=== PATIENT | female | born 1955 | race Caucasian/White ===

== ENCOUNTER 2023-09-17 11:12 | Outpatient (AMB) | payer OTHER, SELFPAY ==
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
== END 2023-09-17 11:57 | disposition home or self-care (01) ==
LOC: HO.HNS 11:13
PROVIDERS: PCP Internal Medicine Geriatric Medicine; Visit Provider Neurological Surgery
DX: M48.061 Spinal stenosis, lumbar region without neurogenic claudication (principal); M51.36 Other intervertebral disc degeneration, lumbar region
CPT/HCPCS: 99204

== ENCOUNTER 2023-09-17 11:12 | Outpatient (REF) | payer OTHER, SELFPAY ==
--- NOTE | ~2023-09-17 | XR_ITS ---
EXAMINATION: XR LUMBOSACRAL SPINE WITH OBLIQUES CLINICAL INFORMATION: Spinal stenosis lumbar region without neurogenic claudication. COMPARISON: None available. TECHNIQUE: AP lateral, flexion and extension views of the lumbar spine. FINDINGS: Levoscoliosis of the lumbar spine. Advanced multilevel degenerative changes in the lumbar spine with multilevel loss of disc space height and hypertrophic change most notable at L1-L2, L2-L3, L4-L5 and L5-S1. Posterior fixation hardware and interdisc spacer at L3-L4. Hardware appears intact. XR/XR lumbar spine 4V min IMPRESSION: Status post posterior fixation at L3-L4. Advanced multilevel degenerative changes in the lumbar spine. MRI could be considered for further evaluation if there is clinical concern for fracture or other pathology.
== END 2023-09-17 11:13 | disposition home or self-care (01) ==
LOC: HO.HOSX 11:12
PROVIDERS: PCP Internal Medicine Geriatric Medicine; Visit Provider Neurological Surgery
DX: M48.061 Spinal stenosis, lumbar region without neurogenic claudication (principal); M51.36 Other intervertebral disc degeneration, lumbar region
CPT/HCPCS: 72110; 99202

== ENCOUNTER 2023-09-29 13:32 | Outpatient (AMB) | payer OTHER, SELFPAY ==
[2023-09-29 13:50] VITALS: BP 149/79; PULSE 98; RESP 12; O2SAT 96; BMI 29.9
--- NOTE | 2023-09-29 13:50 | A.OFFVIS_ITS ---
Intake Vital Signs 3 09/29/23 13:50 Height 5 ft 7 in Weight 191 lb BMI 29.9 BP 149/79 H Blood Pressure Location Lt brachial Position Sitting Respiration 12 Pulse 98 Pulse Source Pulse Oximeter Pulse Oximetry (%) 96 Oxygen Delivery Method Room Air Intake Visit Reasons: SPINAL STENOSIS/LVM Allergies No Known Allergies Allergy (Verified 09/29/23 13:53) Medication List - Last Reconciled 09/29/23 by Isabel Andres LPN allopurinol 300 mg PO DAILY aspirin 81 mg PO DAILY atorvastatin 80 mg PO DAILY duloxetine 40 mg PO DAILY empagliflozin (Jardiance) 25 mg PO DAILY ezetimibe 10 mg PO DAILY furosemide 40 mg PO BID insulin lispro (Humalog KwikPen U-200 Insulin) subcut insulin pump cart,cont inf,BT (Omnipod Dash Pods (Gen 4) subcutaneous cartridge) As directed lisinopril 20 mg PO DAILY oxybutynin chloride ER 10 mg PO DAILY potassium chloride ER 20 mEq PO DAILY HPI SPINAL STENOSIS/LVM 2 HPI0 Details 68-year-old female who presents today to the office for a spinal stenosis. The patient reports progressive upper and lower back pain over the last few years. The patient had L3-4 fusion approximately 10 years ago with good results at the time. She now describes her pain progressively worsening and is now unbearable. She denies significant radiation down her legs. She leans more on the left side during ambulation. She uses a walker or cane for walking. She tried physical therapy and cortisone injections without success. She has also been using anti-inflammatories, Tylenol and compliant with a physician-guided home exercise plan. Review of Systems Const All systems reviewed & are unremarkable except as noted in HPI and below Physical Exam Vital Signs: Last Vital Signs Pulse 98 09/29/23 13:50 Resp 12 09/29/23 13:50 BP 149/79 H 09/29/23 13:50 Pulse Ox 96 09/29/23 13:50 Oxygen Delivery Method Room Air 09/29/23 13:50 BMI result Body Mass Index 29.9 General: Appears afebrile. Alert and oriented. Mood and affect appropriate. Follows and participates in conversation appropriately. Respiratory effort is unlabored. Able to transition from sit to stand unassisted. Ambulates with bilaterally normal heel strike and toe off. Results Reviewed Results Reviewed: 09/17/23: XR LUMBOSACRAL SPINE WITH OBLIQUES FINDINGS: Levoscoliosis of the lumbar spine. Advanced multilevel degenerative changes in the lumbar spine with multilevel loss of disc space height and hypertrophic change most notable at L1-L2, L2-L3, L4-L5 and L5-S1. Posterior fixation hardware and interdisc spacer at L3-L4. Hardware appears intact. IMPRESSION: Status post posterior fixation at L3-L4. Advanced multilevel degenerative changes in the lumbar spine. MRI could be considered for further evaluation if there is clinical concern for fracture or other pathology. 08/12/23: MRI scan LUMBAR SPINE WO CONTRAST. Assessment & Plan Assessment & Plan (1) Lumbar spinal stenosis due to adjacent segment disease after fusion procedure: Code(s): M48.061 - Spinal stenosis, lumbar region without neurogenic claudication; M51.36 - Other intervertebral disc degeneration, lumbar region (2) Neurogenic claudication due to lumbar spinal stenosis: Code(s): M48.062 - Spinal stenosis, lumbar region with neurogenic claudication Plan 68 year old female with lumbar spinal stenosis referred to us for consideration of neuromodulation. She has moderate to severe spinal stenosis at L2-3 and L4-5, with a prior history of decompression and fusion at L3-4. She does report flexing forward and leaning on her cane during walking as well as some exacerbation of symptoms with walking. I think she would benefit from decompression at L2-3 and L4-5. After discussing the with Dr. Valenzuela, I will go ahead and schedule her for minimally invasive lumbar decompression at L2-3 and L4-5. After achieving a decompression at those levels, we can trial either spinal cord stimulator or radiofrequency ablation of the medial branch nerves for residual axial low back pain. Patient expressed understanding and is in agreement with the plan. Scribed for Dr. Rios by Yayo Vasquez, medical field representative, on 09/29/2023. I, Dr. Rios, have personally reviewed and agree with the information entered by the scribe. Coding Level of Care Code New Pt Level 4 (46833) Diagnoses Lumbar spinal stenosis due to adjacent segment disease after fusion procedure M48.061; M51.36 Neurogenic claudication due to lumbar spinal stenosis M48.062
== END 2023-09-29 14:09 | disposition home or self-care (01) ==
PROVIDERS: PCP Internal Medicine Geriatric Medicine; Referring Provider Neurological Surgery; Visit Provider Internal Medicine
DX: M48.061 Spinal stenosis, lumbar region without neurogenic claudication (principal); M51.36 Other intervertebral disc degeneration, lumbar region; M48.062 Spinal stenosis, lumbar region with neurogenic claudication
CPT/HCPCS: 99204

== ENCOUNTER → 2023-09-29 13:32 | Outpatient (BNVA) | payer OTHER, SELFPAY | PROVIDERS: PCP Internal Medicine Geriatric Medicine; Referring Provider Neurological Surgery; Visit Provider Internal Medicine | DX: M48.061 Spinal stenosis, lumbar region without neurogenic claudication (principal); M48.062 Spinal stenosis, lumbar region with neurogenic claudication; M51.36 Other intervertebral disc degeneration, lumbar region | CPT/HCPCS: 99202 ==

== ENCOUNTER 2023-10-31 09:59 | Outpatient (AMB) | payer OTHER, SELFPAY ==
--- NOTE | 2023-10-31 10:01 | A.OFFVIS_ITS ---
Intake Vital Signs 10/31/23 10:03 Height 5 ft 7 in Weight 193 lb BMI 30.2 Blood Pressure Location Lt brachial Position Sitting Respiration 12 Pulse 98 Pulse Source Pulse Oximeter Pulse Oximetry (%) 99 Oxygen Delivery Method Room Air Intake Visit Reasons: Follow Up/Procedure Discussion Allergies No Known Allergies Allergy (Verified 10/31/23 10:05) Medication List - Last Reconciled 10/31/23 by Isabel Andres LPN allopurinol 300 mg PO DAILY aspirin 81 mg PO DAILY atorvastatin 80 mg PO DAILY duloxetine 40 mg PO DAILY empagliflozin (Jardiance) 25 mg PO DAILY ezetimibe 10 mg PO DAILY furosemide 40 mg PO BID insulin lispro (Humalog KwikPen U-200 Insulin) subcut insulin pump cart,cont inf,BT (Omnipod Dash Pods (Gen 4) subcutaneous cartridge) As directed lisinopril 20 mg PO DAILY oxybutynin chloride ER 10 mg PO DAILY potassium chloride ER 20 mEq PO DAILY HPI Follow Up/Procedure Discussion HPI Details 68-year-old female who presents today to the office for a follow-up. The patient reports progressive upper and lower back pain over the last few years. The patient had L3-4 fusion approximately 10 years ago with good results at the time. She now describes her pain as progressively worsening and becoming unbearable. She is using a cane for ambulation. She denies significant radiation down her legs. She had an MRI scan completed at [facility]. She is interested in moving ahead and scheduling her for the MILD procedure. Review of Systems Const All systems reviewed & are unremarkable except as noted in HPI and below Physical Exam Vital Signs: Last Vital Signs Pulse 98 10/31/23 10:03 Resp 12 10/31/23 10:03 Pulse Ox 99 10/31/23 10:03 Oxygen Delivery Method Room Air 10/31/23 10:03 BMI result Body Mass Index 30.2 General: Appears afebrile. Alert and oriented. Mood and affect appropriate. Follows and participates in conversation appropriately. Respiratory effort is unlabored. Able to transition from sit to stand unassisted. Ambulates with bilaterally normal heel strike and toe off. Results Reviewed Results Reviewed: No imaging is available for review. Assessment & Plan Assessment & Plan (1) Neurogenic claudication due to lumbar spinal stenosis: Code(s): M48.062 - Spinal stenosis, lumbar region with neurogenic claudication (2) Lumbar spinal stenosis due to adjacent segment disease after fusion procedure: Code(s): M48.061 - Spinal stenosis, lumbar region without neurogenic claudication; M51.36 - Other intervertebral disc degeneration, lumbar region Plan Will schedule her for a minimally invasive lumbar decompression at L2-3 and L4- 5. I discussed with the patient that if the screws are in the way of accessing the L2-3 space, we may only target the L4-5 space, where her compression is the worst. Informed the patient that insurance approval is required. We will file a PA for approval and keep her updated. After achieving a decompression at those levels, we can trial either spinal cord stimulator or radiofrequency ablation of the medial branch nerves for residual axial low back pain. Discussed the risks and benefits of the procedure with the patient in detail. All questions were answered. The patient is on board with the plan. Justification for interventional therapy: ? Patient with average pain > 6/10 ? Patient has exhausted conservative therapy Scribed for Dr. Rios by Yayo Vasquez, medical doctor md, on 10/31/2023. I, Dr. Rios, have personally reviewed and agree with the information entered by the scribe. Coding Level of Care Code Est Pt Level 3 (73811) Diagnoses Neurogenic claudication due to lumbar spinal stenosis M48.062 Lumbar spinal stenosis due to adjacent segment disease after fusion procedure M48.061; M51.36
[2023-10-31 10:03] VITALS: PULSE 98; RESP 12; O2SAT 99; BMI 30.2
== END 2023-10-31 10:34 | disposition home or self-care (01) ==
PROVIDERS: PCP Internal Medicine Geriatric Medicine; Visit Provider Internal Medicine
DX: M48.062 Spinal stenosis, lumbar region with neurogenic claudication (principal); M48.061 Spinal stenosis, lumbar region without neurogenic claudication; M51.36 Other intervertebral disc degeneration, lumbar region
CPT/HCPCS: 99213

== ENCOUNTER → 2023-10-31 09:59 | Outpatient (BNVA) | payer OTHER, SELFPAY | PROVIDERS: PCP Internal Medicine Geriatric Medicine; Visit Provider Internal Medicine | DX: M48.062 Spinal stenosis, lumbar region with neurogenic claudication (principal); M48.061 Spinal stenosis, lumbar region without neurogenic claudication; M51.36 Other intervertebral disc degeneration, lumbar region | CPT/HCPCS: 99212 ==

== ENCOUNTER 2025-04-08 12:34 | Outpatient (AMB) | payer OTHER, SELFPAY ==
--- NOTE | 2025-04-08 12:35 | A.OFFVIS_ITS ---
Vital Signs 04/08/25 12:37 Height 5 ft 7 in Weight 196 lb BMI 30.7 BP 148/66 H Blood Pressure Location Lt brachial Position Sitting Respiration 16 Pulse 92 Pulse Source Pulse Oximeter Pulse Oximetry (%) 96 Oxygen Delivery Method Room Air Intake Visit Reasons: Back pain Commercial Leasing Agent Required: No Allergies No Known Allergies Allergy (Verified 04/08/25 12:38) Medication List - Last Reconciled 04/08/25 by Isabel Andres LPN allopurinol 300 mg PO DAILY aspirin 81 mg PO DAILY atorvastatin 80 mg PO DAILY duloxetine 40 mg PO DAILY empagliflozin (Jardiance) 25 mg PO DAILY ezetimibe 10 mg PO DAILY furosemide 40 mg PO BID insulin lispro (Humalog KwikPen U-200 Insulin) subcut insulin pump cart,cont inf,BT (Omnipod Dash Pods (Gen 4) subcutaneous cartridge) As directed lisinopril 20 mg PO DAILY oxybutynin chloride ER 10 mg PO DAILY potassium chloride ER 20 mEq PO DAILY HPI HPI Back pain: Details: History of Present Illness The patient is a 70-year-old female presenting with chronic back pain and cervical pain. She reports her back pain has intensified since her last visit, complicating her ability to walk without frequent rest, with particularly acute exacerbations during rainy weather. Previously, she was approved for minimally invasive lumbar decompression surgery, which could not be completed due to a wrist fracture. Additionally, she reports severe neck pain, restricting movement and causing significant discomfort. This pain has not been addressed with previous therapies such as physical therapy or chiropractic intervention. Her past medical history includes a wrist fracture, requiring rehabilitation and delaying planned surgical interventions initially scheduled. Pain Description - Onset: Occurring since before the last visit, worsened recently. - Quality: Chronic, severe, and debilitating. - Location: Primarily the lower back and cervical region. - Exacerbating Factors: Walking long distances, rainy days. - Relieving Factors: Resting after short distances when walking. - Interference: Significant impact on walking and overall mobility; neck pain limits range of motion. Physical Exam - Appears afebrile. - Alert and oriented. - Mood and affect appropriate. - Follows and participates in conversation appropriately. - Respiratory effort is unlabored. Pain Management - Affect: Chronic pain impacting daily activities and mobility, including significant emotional distress. - Analgesia: Current medication includes baby aspirin, recent approval for minimally invasive lumbar decompression. - Adverse Effects: No reported adverse effects from current medications. - Activities of Daily Living: Pain interferes with walking, necessitating frequent breaks and impacting quality of life significantly. - Aberrant Drug-Related Behaviors: None reported. [facility] Medical History (Updated 05/04/24 @ 12:34 by Enriqueta Corona NP) Stroke PVD (peripheral vascular disease) Hemiparesis, right CKD (chronic kidney disease) HTN (hypertension) Diabetes High cholesterol Gout Physical Exam Vital Signs: Last Vital Signs Pulse 92 04/08/25 12:37 Resp 16 04/08/25 12:37 BP 148/66 H 04/08/25 12:37 Pulse Ox 96 04/08/25 12:37 Oxygen Delivery Method Room Air 04/08/25 12:37 BMI result Body Mass Index 30.7 Assessment & Plan Assessment & Plan (1) Lumbar spinal stenosis due to adjacent segment disease after fusion procedure: Code(s): M48.061 - Spinal stenosis, lumbar region without neurogenic claudication; M51.36 - Other intervertebral disc degeneration, lumbar region Category: Medical (2) Neurogenic claudication due to lumbar spinal stenosis: Code(s): M48.062 - Spinal stenosis, lumbar region with neurogenic claudication Category: Medical Plan Plan - Seek re-approval for L2-3, L4-5 minimally invasive lumbar decompression to address worsening chronic back pain and improve mobility. - Recommend physical therapy as a conservative measure to alleviate cervical pain and address neck movement restrictions. - Monitor post-rehabilitation for wrist fracture recovery. - Plan follow-up appointment contingent upon insurance authorization. Patient was informed and verbally consented to the use of an ambient scribe for clinic note documentation during this visit. Discussion Notes Upon discussion, I informed the patient of the need to re-seek authorization for her minimally invasive lumbar decompression surgery due to the increased severity of her back pain and its impact on mobility. I explained that the procedure, once authorized, potentially reduces her pain and increases her walking tolerance, but may not resolve all pain symptoms. We discussed alternative interventions for unresolved symptoms such as radiofrequency ablation and spinal cord stimulation. Additionally, I suggested that she consider physical therapy for her cervical pain, emphasizing conservative management first. The patient acknowledged understanding of the procedural details, including potential durations and recovery expectations. I advised on follow-up care post-procedure authorization. Patient Instructions - Await contact regarding finalized surgery schedule following insurance approval. - Consider initiating physical therapy for your neck to explore pain relief options. - Take necessary precautions for safety to avoid further falls. - Follow up as advised for ongoing evaluation and management of pain-related issues. Coding Level of Care Code Procedure Only Diagnoses Lumbar spinal stenosis due to adjacent segment disease after fusion procedure M48.061; M51.36 Neurogenic claudication due to lumbar spinal stenosis M48.062
[2025-04-08 12:37] VITALS: BP 148/66; PULSE 92; RESP 16; O2SAT 96; BMI 30.7
--- OUTSIDE RECORDS SUMMARY | 2025-04-08 12:58 | XMS_ITS | Encounter Summary ---
Author Organization [facility] Address [address] [place] [address] Care Team Providers Care Allergist/Pediatric Pulmonologist Name Role Phone Ysabel Whyte MD Primary Care Provider [phone] Encounter Details Date Type Department Care Team (Latest Contact Info) Description 01/26/2025 Lab Requisition [facility] - Main Lab [address] [place] [address] Manoj Max MD [address] [place] [address] Type 2 diabetes mellitus without complications (CMS/HCC V24, CMS/HCC V28); Major depressive disorder, single episode, unspecified; Other cerebrovascular disease Social History Tobacco Use Types Packs/Day Years Used Date Smoking Tobacco: Never Assessed Comments Unknown Sex and Gender Information Value Date Recorded Sex Assigned at Not on file Legal Sex Female 1:54 AM EST Gender Identity Not on file Sexual Orientation Not on file documented as of this encounter Plan of Treatment Not on file documented as of this encounter Procedures Procedure Name Priority Date/Time Associated Diagnosis Comments COMPLETE BLOOD COUNT Routine 01/26/2025 4:55 AM EDT Type 2 diabetes mellitus without complications (CMS/HCC) Major depressive disorder, single episode, unspecified Other cerebrovascular disease BASIC METABOLIC PANEL Routine 01/26/2025 4:55 AM EDT Type 2 diabetes mellitus without complications (CMS/HCC) Major depressive disorder, single episode, unspecified Other cerebrovascular disease documented in this encounter Results * (ABNORMAL) Basic metabolic panel (01/26/2025 4:55 AM EDT) Sodium 144 133 - 145 mmol/L LAB CHEMISTRY METHOD 01/26/2025 10:59 AM [facility] Potassium 4.2 3.5 - 5.5 mmol/L LAB CHEMISTRY METHOD 01/26/2025 10:59 AM [facility] Chloride 110 96 - 110 mmol/L LAB CHEMISTRY METHOD 01/26/2025 10:59 AM [facility] CO2 26 21 - 32 mmol/L LAB CHEMISTRY METHOD 01/26/2025 10:59 AM [facility] Anion Gap 8 3 - 11 LAB CHEMISTRY METHOD 01/26/2025 10:59 AM [facility] Glucose 85 70 - 100 mg/dL LAB CHEMISTRY METHOD 01/26/2025 10:59 AM [facility] BUN 35(H) 5 - 25 mg/dL LAB CHEMISTRY METHOD 01/26/2025 10:59 AM [facility] Creatinine 2.29(H) 0.50 - 1.10 mg/dL LAB CHEMISTRY METHOD 01/26/2025 10:59 AM [facility] eGFR 22(L) >=60 mL/min/1. 73m2 LAB CHEMISTRY METHOD 01/26/2025 10:59 AM [facility] Comment:Calculation based on the??Chronic Kidney Disease Epidemiology Collaboration (CKD-EPI) equation refit??without adjustment for race. BUN/Creatinine Ratio 15.3 LAB CHEMISTRY METHOD 01/26/2025 10:59 AM [facility] Calcium 8.9 8.5 - 10.5 mg/dL LAB CHEMISTRY METHOD 01/26/2025 10:59 AM [facility] Blood Venous blood specimen / Unknown Venipuncture / Unknown 01/26/2025 4:55 AM EDT 01/26/2025 9:55 AM EDT us Manoj Max MD LAB BLOOD ORDERABLES Final Resul t [facility] [address] [place] [address], * Complete blood count (01/26/2025 4:55 AM EDT) [facility] WBC 8.0 4.8 - 10.8 K/mcL LAB HEMETOLOGY METHOD 01/26/2025 10:10 AM EDT [facility] RBC 3.80 3.80 - 4.80 M/mcL LAB HEMETOLOGY METHOD 01/26/2025 10:10 AM EDT [facility] Hemoglobin 11.7 11.5 - 16.0 g/dL LAB HEMETOLOGY METHOD 01/26/2025 10:10 AM EDT [facility] Hematocrit 36.3 35.0 - 47.0 % LAB HEMETOLOGY METHOD 01/26/2025 10:10 AM EDT [facility] MCV 94.5 79.0 - 98.0 FL LAB HEMETOLOGY METHOD 01/26/2025 10:10 AM EDT [facility] MCH 30.5 27.0 - 32.0 pcg LAB HEMETOLOGY METHOD 01/26/2025 10:10 AM EDT [facility] MCHC 32.2 32.0 - 37.0 g/dL LAB HEMETOLOGY METHOD 01/26/2025 10:10 AM EDT [facility] RDW 14.1 11.0 - 15.0 % LAB HEMETOLOGY METHOD 01/26/2025 10:10 AM EDT [facility] Platelets 227 130 - 400 K/mcL LAB HEMETOLOGY METHOD 01/26/2025 10:10 AM EDT [facility] MPV 11.0 7.0 - 11.0 FL LAB HEMETOLOGY METHOD 01/26/2025 10:10 AM EDT [facility] NRBC 0.0 <1.0 % LAB HEMETOLOGY METHOD 01/26/2025 10:10 AM EDT [facility] NRBC Absolute 0.00 <0.10 K/mcL LAB HEMETOLOGY METHOD 01/26/2025 10:10 AM EDT [facility] Blood Venous blood specimen / Unknown Venipuncture / Unknown 01/26/2025 4:55 AM EDT 01/26/2025 9:55 AM EDT us Manoj Max MD LAB BLOOD ORDERABLES Final Resul t [facility] [address] [place] [address], documented in this encounter Visit Diagnoses Diagnosis Type 2 diabetes mellitus without complications (CMS/HCC V24, CMS/HCC V28) Major depressive disorder, single episode, unspecified Other cerebrovascular disease documented in this encounter Care Teams Allergist/Pediatric Pulmonologist Relationship Specialty Start Date End Date Ysabel Whyte MD [address] [place] [address] PCP - General Internal Medicine 02/20/22 documented as of this encounter
== END 2025-04-08 13:02 | disposition home or self-care (01) ==
LOC: HO.PMC 12:34
PROVIDERS: PCP Internal Medicine Geriatric Medicine; Visit Provider Internal Medicine
DX: M48.061 Spinal stenosis, lumbar region without neurogenic claudication (principal); M51.369 Other intervertebral disc degeneration, lumbar region without mention of lumbar back pain or lower extremity pain; M48.062 Spinal stenosis, lumbar region with neurogenic claudication
CPT/HCPCS: 99213

== ENCOUNTER → 2025-04-08 12:34 | Outpatient (BNVA) | payer OTHER, SELFPAY | PROVIDERS: PCP Internal Medicine Geriatric Medicine; Visit Provider Internal Medicine | DX: M48.061 Spinal stenosis, lumbar region without neurogenic claudication (principal); M51.360 Other intervertebral disc degeneration, lumbar region with discogenic back pain only; M48.062 Spinal stenosis, lumbar region with neurogenic claudication | CPT/HCPCS: 99212 ==

== ENCOUNTER 2025-06-22 10:54 | Day surgery (SDC) | payer OTHER, SELFPAY ==
--- OUTSIDE RECORDS SUMMARY | 2025-02-04 09:00 | XMS_ITS ---
Author Organization [facility] Address [address] [place] [address] Care Team Providers Care Pit Hoist Operator Name Role Phone Ysabel Whyte Primary Care Provider Tish Farr [phone] Encounters Encounter Location Date Provider Diagnosis [address] [address] 02/04/2025 Tish Thakur Plan Of Treatment Next Appt Details Provider Name:Tish A Blaze , 07/06/2025 02:00:00 PM, [address] [facility], [place], [address], Progress Notes * Kallie PARRISHOB: (70 yo F)Acc No.[id number]:02/04/2025 Progress Note Patient: Mindy Keely POWERS Provider: Iam Thakur DPM :1955 A ge:69 Y S ex:Female Date:02/04/2025 Address:[address] [place], [place] [id number] Pcp:Ysabel Whyte Subjective: * Chief Complaints: * * Medical History: Objective: * Vitals: Assessment: Plan: * Treatment: * Images: * The named appointment provid er may or may not be the originator of this progress note, and it is not deemed complete until electronically signed by the appointment provider. Sign off status: Pending * Provider: Iam Thakur DPM Date: 0 02/04/2025 Generated for Ketty rivera/Morales/Harrisonitting on: 0 06/08/2025 09:35 AM EDT
--- OUTSIDE RECORDS SUMMARY | 2025-06-08 09:35 | XMS_ITS | Clinical Summary ---
Author Organization [facility] Address [address] [place] [address] Phone Care Team Providers Care Online Merchandising Manager Name Role Phone Ysabel Whyte MD Primary Care Provid er Allergies No known active allergies Medications blood-glucose sensor (DEXCOM G6 SENSOR) Chacha Dexcom G6 Sensor device USE TO MONITOR BLOOD GLUCOSE CONTINUOUSLY AND CHANGE EVERY 10 DAYS Active blood-glucose transmitter (DEXCOM G6 TRANSMITTER) [place]acha Dexcom G6 Transmitter device USE DEXCOM G6 TRANSMITTER SENSOR TO MONITOR GLUCOSE CONTINOUSLY CHANGE EVERY 3 MONTHS Active insulin pump cart,cont inf,BT (OMNIPOD DASH PODS, GEN 4,) Crtg Omnipod Dash Pods (Gen 4) subcutaneous cartridge Active aspirin 81 MG EC tablet Take 81 mg by mouth daily. 2 Active allopurinol (ZYLOPRIM) 300 MG tablet Take 300 mg by mouth daily. 2 Active atorvastatin (LIPITOR) 80 MG tablet atorvastatin 80 mg tablet TAKE 1 TABLET BY MOUTH DAILY Active cephalexin (KEFLEX) 500 MG capsule cephalexin 500 mg capsule 500 mg PO administered on scene. Time administered:625 p Active TRULICITY 3 mg/0.5 mL subcutaneous injection ADMINISTER 3MG UNDER THE SKIN EVERY WEEK. ROTATE INJECTION SITES 2 Active DULoxetine (CYMBALTA) 20 MG capsule Take 40 mg by mouth daily. 2 Active empagliflozin (JARDIANCE) 25 mg tablet Jardiance 25 mg tablet TAKE 1 TABLET BY MOUTH DAILY IN THE MORNING HIGHER DOSE BACK ON DINNER HUMULIN PER PLAN. KEEP UP WITH FLUID Active ezetimibe (ZETIA) 10 mg tablet ezetimibe 10 mg tablet TAKE 1 TABLET BY MOUTH DAILY Active furosemide (LASIX) 40 MG tablet Take 40 mg by mouth 2 (two) times a day. 2 Active gabapentin (NEURONTIN) 100 MG capsule Take 200 mg by mouth 3 (three) times a day. 2 Active lisinopril (PRINIVIL,ZESTRI L) 20 MG tablet Take 20 mg by mouth daily. 2 Active oxybutynin (DITROPAN-XL) 10 MG 24 hr tablet Take 10 mg by mouth daily. 2 Active oxyCODONE 5 MG immediate release tablet oxycodone 5 mg tablet TAKE 1 TABLET BY MOUTH EVERY 6 HOURS NEEDED FOR PAIN. MAY PARTIALLY FILL Active potassium chloride (MICRO-K) 10 mEq CR capsule potassium chloride ER 10 mEq capsule,extended release TAKE 2 CAPSULES BY MOUTH DAILY Active Active Problems Problem Noted Date Diagnosed Date Primary osteoarthritis of right knee 11/21/2022 Social History Tobacco Use Types Packs/Day Years Used Date Smoking Tobacco: Never Smokeless Tobacco: Never Tobacco Cessation:Counseling Given: Not Answered Education Answer Date Recorded Are you interested in more education? Not on luis e 03/07/2023 Are you concerned about learning? Not on file 03/07/2023 No 03/07/2023 No 03/07/2023 Digital Access Answer Date Recorded No 04/07/2023 No 04/07/2023 Reliable internet access at home? Not on file 04/07/2023 Device with a working camera? Not on file Comments Unknown Sex and Gender Information Value Date Recorded Sex Assigned at Not on file Legal Sex Female 10:36 PM EDT Gender Identity Not on file Sexual Orientation Not on file Last Filed Vital Signs Vital Sign Reading Time Taken Comments Blood Pressure 183/96 04/14/2014 12:09 PM EDT Pulse 89 04/14/2014 12:09 PM EDT Temperature - - Respiratory Rate - - Oxygen Saturation - - Inhaled Oxygen Concentration - - Weight 92.5 kg (204 lb) 04/14/2014 12:09 PM EDT Height 167.6 cm (5' 6 ) 04/14/2014 12:09 PM EDT Body Mass Index 32.93 04/14/2014 12:09 PM EDT Plan of Treatment Health Maintenance Due Date Last Done Comments CREATININE LEVEL 1954 LIPID PANEL 1954 POTASSIUM LEVEL 1954 DEPRESSION SCREENING 1966 HEPATITIS C SCREENING 02/09/1972 MAMMOGRAM 1994 COLOGUARD 1999 COLONOSCOPY 1999 COLORECTAL CANCER SCREENING 1999 FIT TEST 1999 FOBT 1999 SIGMOIDOSCOPY 1999 VIRTUAL COLONOSCOPY 1999 RSV VACCINE (1 - Risk 60-74 years 1-dose series) 2014 ZOSTER VACCINES (2 of 3) 12/16/2017 10/21/2017 OSTEOPOROSIS SCREENING INITIAL (ONE-TIME) 2019 COVID-19 VACCINE ( season) 2024 10/23/2022, 09/17/2021, 01/30/2021, Additional history exists Adult Td,Tdap Booster 08/01/2031 08/01/2021 , 12/07/2013, 03/09/2003 PNEUMOCOCCAL VACCINES (50+ years) Completed 10/22/2021, 10/19/2020, 10/23/2004 SMOKING STATUS SCREENING (Once After 26 Yrs) Completed 02/20/2023 HEPATITIS A VACCINES Aged Out No long er eligible based on patient's age to complete this topic HIB VACCINES Aged Out No longer eligi ble based on patient's age to complete this topic MENINGOCOCCAL VACCINES (ACWY) Aged Out No longer eligible based on patient's age to complete this topic MENINGOCOCCAL VACCINES (B) Aged Out N o longer eligible based on patient's age to complete this topic Medical Devices Not on file Insurance MEDICARE PART A & B [facility] MEDICARE REPLACEMENT MEDICARE PART A & B [facility] MEDICARE REPLACEMENT MEDICARE PART A & B Member Subscriber Plan / Payer (Ef fective 2022-Present) Name:Keely Parrish Member ID:[id number] Relation to Subscriber:Self Name:Shivani Keely Subscriber ID:[id number] Payer ID:[id number] Group ID:Not on file Type:Medicare Address: [employer] [address] [place] [address] [place] [address] MEDICARE REPLACEMENT MEDICARE PART A & B [facility] MEDICARE REPLACEMENT MEDICARE PART A & B Member Subscriber Plan / Payer (Ef fective 2022-) Name:Keely Parrish Member ID:[id number] Relation to Subscriber:Self Name:Keely Parrish Subscriber ID:[id number] Payer ID:[id number] Group ID:Not on file Type:Medicare Address: [facility] [employer] [address] MEDICARE REPLACEMENT MEDICARE PART A & B [facility] MEDICARE REPLACEMENT Care Teams Online Merchandising Manager Relationship Specialty Start Date End Date Ysabel Whyte MD [address] [place] [address] PCP - General Internal Medicine 11/14/22 Additional Source Comments The information contained in this document represents components of the legal health record. It is not the complete legal health record.Formerly [facility]
--- OUTSIDE RECORDS SUMMARY | 2025-06-08 09:35 | XMS_ITS | Patient Health Record ---
Author Organization [facility] Address [address] [place] [address] Care Team Providers Care Aluminum Siding Mechanic Name Role Phone Isabell BOOKER, Ysabel Primary Care Provider Elver Rodriguez Jr Unavailable Reason For Referral No Information Medications Medication SIG (Take, Route, Frequency, Duration) Notes Start Date End Date Status Mag-Oxide 400mg Acti ve NovoLOG FlexPen 240units Active metFORMIN HCl 500mg Active Lantus 70units Activ e Zolpidem & Diet Manage Prod 10mg Active Lipitor 40mg Active HYDROcodone-Acetaminophen 7.5/500 Active Naproxen 500mg Activ e Omeprazole 20 MG 1 capsule Orally Onc e a day for 30 day(s) 08/13/2012 Active Ecotrin 325mg Active Gabapentin 300mg Act xiomara Potassium 10meq Acti ve Furosemide 40mg Acti ve Allopurinol 300mg Ac tive Vitamin D 50,000 11/10/2024 11/10/2024 A ctive Lisinopril 20mg Acti ve glipiZIDE 10mg Activ e Social History Tobacco Use: Social History Observation Description Date Details (start date - stop date) Never Smoker NA - NA Tobacco Use/Smoking Question Answer Notes Patient is a nonsmoker Alcohol Screen Question Answer Notes Did you have a drink contain ing alcohol in the past year? Yes Points 1 Interpretation Negative How often did you have a dri nk containing alcohol in the past year? Monthly or less (1 point) How many drinks did you have on a typical day when you were drinking in the past year? 1 or 2 drinks (0 point) How often did you have 6 or more drinks on one occasion in the past year? Never (0 point) Problems Problem Type SNOMED Code ICD Code Onset Dates Problem Status W/U Status Risk Notes Problem Esophageal reflux (040637281) Esophageal reflux (530.81) Active confirmed Plan Of Treatment Pending Test Test Name Order Date XR GI SERIES 08/13/2012 Insurance Providers Payer Name Payer Address Payer Phone Subscriber Number Group Number Insured Name Patient Relationship to Insured Coverage Start Date Coverage End Date MEDICARE OF [place] [address] [place] [id number] HARSH HAJI Self - patient is the insured MEDICA[facility] [address] [place] [address] [id number] HARSH HAJI Self - patient is the insured Medical (General) History Medical History History ICD Code Denies NM,Lung disease kidney failer stroke diabetes hypertension cervical cancer skin cancer Surgical History Surgery Date(Month/Year) hysterectomy 1989 knee replacement 2009 back surgery 2010 carpal tunnel
--- OUTSIDE RECORDS SUMMARY | 2025-06-08 09:35 | XMS_ITS | Encounter Summary ---
Author Organization [facility] Address [address] [place] [address] Care Team Providers Care Hand Filer Balance Wheel Name Role Phone Ysabel Whyte MD Primary Care Provider [phone] Encounter Details Date Type Department Care Team (Latest Contact Info) Description 01/26/2025 Lab Requisition [facility] - Main Lab [address] [facility] [place] [address] Manoj Max MD [address] [place] [address] Type 2 diabetes mellitus without complications (CMS/HCC [...] mmol/L LAB CHEMISTRY METHOD 01/26/2025 10:59 AM [facility] Potassium 4.2 3.5 - 5.5 mmol/L LAB CHEMISTRY METHOD 01/26/2025 10:59 AM [facility] Chloride 110 96 - 110 mmol/L LAB CHEMISTRY METHOD 01/26/2025 10:59 AM [facility] CO2 26 21 - 32 mmol/L LAB CHEMISTRY METHOD 01/26/2025 10:59 AM [facility] Anion Gap 8 3 - 11 LAB CHEMISTRY METHOD 01/26/2025 10:59 AM [facility] Glucose 85 70 - 100 mg/dL LAB CHEMISTRY METHOD 01/26/2025 10:59 AM [facility] BUN 35(H) 5 - 25 mg/dL LAB CHEMISTRY METHOD 01/26/2025 10:59 AM [facility] Creatinine 2.29(H) 0.50 - 1.10 mg/dL LAB CHEMISTRY METHOD 01/26/2025 10:59 AM [facility] eGFR 22(L) >=60 mL/min/1. 73m2 LAB CHEMISTRY METHOD 01/26/2025 10:59 AM [facility] Comment:Calculation based on the Chronic Kidney Disease Epidemiology Collaboration (CKD-EPI) equation refit without adjustment for race. BUN/Creatinine Ratio 15.3 LAB CHEMISTRY METHOD 01/26/2025 10:59 AM [facility] Calcium 8.9 8.5 - 10.5 mg/dL LAB CHEMISTRY METHOD 01/26/2025 10:59 AM [facility] Blood Venous blood specimen / Unknown Venipuncture / Unknown 01/26/2025 4:55 AM EDT 01/26/2025 9:55 AM EDT us Manoj Max MD LAB BLOOD ORDERABLES Final Resul t [facility] [address] [place] [address], * Complete blood count (01/26/2025 4:55 AM EDT) [facility] WBC 8.0 4.8 - 10.8 K/mcL LAB HEMETOLOGY METHOD 01/26/2025 10:10 AM EDT [facility] RBC 3.80 3.80 - 4.80 M/mcL LAB HEMETOLOGY METHOD 01/26/2025 10:10 AM EDT [facility] Hemoglobin 11.7 11.5 - 16.0 g/dL LAB HEMETOLOGY METHOD 01/26/2025 10:10 AM EDT [facility] Hematocrit 36.3 35.0 - 47.0 % LAB HEMETOLOGY METHOD 01/26/2025 10:10 AM EDT [facility] MCV 94.5 79.0 - 98.0 FL LAB HEMETOLOGY METHOD 01/26/2025 10:10 AM EDT [facility] MCH 30.5 27.0 - 32.0 pcg LAB HEMETOLOGY METHOD 01/26/2025 10:10 AM EDT [facility] MCHC 32.2 32.0 - 37.0 g/dL LAB HEMETOLOGY METHOD 01/26/2025 10:10 AM EDT [facility] RDW 14.1 11.0 - 15.0 % LAB HEMETOLOGY METHOD 01/26/2025 10:10 AM EDT [facility] Platelets 227 130 - 400 K/mcL LAB HEMETOLOGY METHOD 01/26/2025 10:10 AM EDT [facility] MPV 11.0 7.0 - 11.0 FL LAB HEMETOLOGY METHOD 01/26/2025 10:10 AM EDT [facility] NRBC 0.0 <1.0 % LAB HEMETOLOGY METHOD 01/26/2025 10:10 AM EDT [facility] NRBC Absolute 0.00 <0.10 K/mcL LAB HEMETOLOGY METHOD 01/26/2025 10:10 AM EDT [facility] Blood Venous blood specimen / Unknown Venipuncture / Unknown 01/26/2025 4:55 AM EDT 01/26/2025 9:55 AM EDT us Manoj Max MD LAB BLOOD ORDERABLES Final Resul t [facility] [address] [place] [address], documented in this encounter Visit Diagnoses Diagnosis Type 2 diabetes mellitus without complications (CMS/HCC V24, CMS/HCC V28) Major depressive disorder, single episode, unspecified Other cerebrovascular disease documented in this encounter Care Teams Hand Filer Balance Wheel Relationship Specialty Start Date End Date Ysabel Whyte MD [address] [place] [address] PCP - General Internal Medicine 02/20/22 documented as of this encounter
[2025-06-20 11:30] VITALS: BMI 30.7
--- NOTE | 2025-06-21 08:51 | HO.ANESPROP2 ---
HPI - Anesthesia Eval Consult details Narrative: 70 yr old female for L2-L3,L4-L5 Minimally Invasive Lumbar Decompression Stage 4 CKD: follows with renal, creat stable at 2.5 H/O CVA: right hemiparesis, late effect of stroke. Head/Neck CTA done 01/2025 due to fall, results showed: -No acute vessel occlusion of major arteries of head or neck. 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 -Subsequent severe stenosis of intracranial left ICA, with reconstitution at the [place] of [place] via anterior and left posterior communicating arteries. -Unchanged moderate right vertebral artery origin stenosis. Head CT also done 01/2025: neg for acute intracranial abnormality. Uncontrolled Type 2 Diabetes: follows with endo, A1C was better 01/2025 at 6.8% Anesthesia Pre-Procedure Meds Is the patient on any of the following meds?: SGLT2 Inhib PMFSH Active Problems Active Problems: All Active Problems Neurogenic claudication due to lumbar spinal stenosis (Acute) Lumbar spinal stenosis due to adjacent segment disease after fusion procedure (Acute) Past Medical History Medical History (Updated 06/20/25 @ 11:10 by Zita Scott RN) PTSD (post-traumatic stress disorder) OAB (overactive bladder) Osteoarthritis Depression TBI (traumatic brain injury) Diabetic neuropathy Diabetic nephropathy Back pain Stroke PVD (peripheral vascular disease) Hemiparesis, right CKD (chronic kidney disease) HTN (hypertension) Diabetes High cholesterol Gout Surgical History Surgical History (Updated 06/20/25 @ 11:18 by Zita Scott RN) History of open reduction and internal fixation (ORIF) procedure Hx of hysterectomy History of carpal tunnel release Hx of lithotripsy Hx of cataract extraction History of bunionectomy History of lumbar spinal fusion History of total left hip replacement H/O colonoscopy History of total right hip replacement Hx of angioplasty History of esophagogastroduodenoscopy (EGD) Meds Allergies Allergy/AdvReac Type Severity Reaction Status Date / Time No Known Allergies Allergy Verified 04/08/25 12:38 Home Medications ?Medication ?Instructions ?Recorded ?Confirmed ?Last Taken ?Type allopurinol 300 mg tablet 300 mg PO DAILY 09/29/23 06/20/25 Unknown History aspirin 81 mg tablet,delayed 81 mg PO DAILY 09/29/23 06/20/25 Unknown History release atorvastatin 80 mg tablet 80 mg PO DAILY 09/29/23 06/20/25 Unknown History duloxetine 20 mg capsule,delayed 40 mg PO DAILY 09/29/23 06/20/25 Unknown History release empagliflozin 25 mg tablet 25 mg PO DAILY 09/29/23 06/20/25 Unknown History (Jardiance) ezetimibe 10 mg tablet 10 mg PO DAILY 09/29/23 06/20/25 Unknown History furosemide 40 mg tablet 40 mg PO BID 09/29/23 06/20/25 Unknown History insulin lispro 200 unit/mL (3 mL) subcut 09/29/23 04/08/25 Unknown History subcutaneous pen (Humalog KwikPen U-200 Insulin) insulin pump cart,cont inf,BT #5 ea 09/29/23 04/08/25 Unknown History (Omnipod Dash Pods (Gen 4) subcutaneous cartridge) lisinopril 20 mg tablet 20 mg PO DAILY 09/29/23 06/20/25 Unknown History oxybutynin chloride 10 mg 10 mg PO DAILY 09/29/23 06/20/25 Unknown History tablet,extended release 24 hr amlodipine 10 mg tablet 10 mg PO DAILY blood pressure 06/20/25 06/20/25 Unknown History gabapentin 100 mg capsule 200 mg PO TID 06/20/25 06/20/25 Unknown History hydralazine 10 mg tablet 10 mg PO TID 06/20/25 06/20/25 Unknown History lorazepam 0.5 mg tablet 0.5 mg PO BID PRN anxiety 06/20/25 06/20/25 Unknown History mirabegron 25 mg tablet,extended 25 mg PO DAILY 06/20/25 06/20/25 Unknown History release 24 hr (Myrbetriq) Exam Height,Weight and Vital Signs: Height 5 ft 7 in Weight 88.904 kg Pertinent Lab Results Pertinent Lab Results: 05/2025 labs Sodium: 142 Potassium: 4.5 Glucose: 54 BUN 33 creatinine: 2.82 WBC: 11.4 RBC: 3.42 Hb.6 Hct: 32.4 Plat: 265 Narrative Narrative: EKG 06/07/25 Normal sinus rhythm, no acute ST-T wave changes, rate 83 Echo 2023 LV size is normal. LV wall thickness is mildly increased. LV systolic function is vigorous. LVEF 65-70% Aortic sclerosis with no aortic stenosis
[2025-06-22] VITALS (8 sets, daily range): BP systolic 110–198; BP diastolic 47–79; PULSE 67–86; RESP 13–20; TEMP 36.1–36.6; O2SAT 96–99
--- NOTE | ~2025-06-22 | FL_ITS ---
EXAMINATION: FL GUIDANCE ONLY HISTORY: L2-3 L4-5 MILD COMPARISON: Correlation is made with plain films of the bar spine dated 09/17/2023. TECHNIQUE: Fluoroscopy time: 14.40 minutes. Cumulative Dose: 859.30 mGy. DAP: 34.537 mGym2 Images: 10. FINDINGS: Fluoroscopic spot films of the lumbar spine demonstrate probes at the L3 and L4 levels. FL/FL guidance in OR IMPRESSION: Fluoroscopy during procedure. Please see procedure report for additional information. Electronically signed by: Tl Borges MD 06/22/2025 02:40 PM EDT
[2025-06-22] MEDS: Lactated Ringers 1,000 ML 100 ML IVCONT (11:32)
[2025-06-22 11:33] LABS: Glucose, Whole Blood 335 mg/dL (60-115)
[2025-06-22 12:35] LABS: Glucose, Whole Blood 301 mg/dL (60-115)
--- NOTE | 2025-06-22 12:48 | MHC.SHP ---
Pre-Procedural Eval Section A - 24 Hr Update-Section A only Date of Service: 06/22/25 The patient is an INPATIENT: No Changes since office visit: Yes Patient answered all questions The patient has been examined within 24 hours of the surgical procedure. The History & Physical has been completed within 30 days and I have reviewed it.: No Section B - Complete if H&P > 30 days Chief Complaint: spinal stenosis,lumbar region,degeneration Relevant Family History (Specify if Yes): No Relevant Social History: None Present Medications: see Short Stay Collaborative assessment Medical History: No relevant PMH History of Previous Operations: No relevant previous surgery Allergies: Allergies Allergy/AdvReac Type Severity Reaction Status Date / Time No Known Allergies Allergy Verified 04/08/25 12:38 Review of Systems Sugical H&P ROS: Negative: Constitution, Cardiovascular and Respiratory Exam Surgical H&P Exam: Normal: HEENT, Normal: Heart and Normal: Lungs Plan Diagnosis/Plan: Unchanged I have reviewed the history and physical and performed a pertinent physical examination on my patient. No changes have occurred unless specified. Time Spent With Patient Time: Total time managing care of this patient today ____ minutes.
--- NOTE | 2025-06-22 12:48 | PM.OP ---
Brief Operative Note Date of Service: 06/22/25 Pre-op diagnosis: Lumbar spinal stenosis with neurogenic claudication Post-op diagnosis: same Procedure: Minimally Invasive Lumbar Decompression, Bilateral, L2/3, L4/5 Surgeon: Chava Rios MD Was an Physician Chief Of Pathology used for this Procedure?: No Estimated blood loss (mL): 10 Pathology: none sent Condition: stable Disposition: PACU
--- NOTE | 2025-06-22 12:48 | W.PM.OPN ---
Operative Note Operative Note Date of Service: 06/22/25 Narrative: Minimally Invasive Lumbar Decompression, Bilateral, L-2/3, L-4/5 After informed consent, patient was brought to the operating room. The patient was placed in the prone position in the fluoroscopy suite with blankets (bolster) under the hips to assist with reversing lordosis of the spine. Following IV sedation and antibiotic administration, the patient was prepped and draped in my usual standard fashion. Time-out was performed to confirm site and level of intervention. Ample amounts of local anesthetic were used to anesthetize the skin and deep facial planes after topographical landmarks were identified. Procedural safety barriers were established by utilizing a contralateral oblique (JAVY) view to visualize the ventral interlaminar line (VILL). Instruments remained posterior to the VILL during the percutaneous lumbar decompression procedure. A small midline incision was made with a sharp scalpel blade, and a trocar with portal was inserted percutaneously under fluoroscopic guidance to contact the lamina indicated. The trocar and portal were tugged to the right side to approach the right interlaminar space first. A bone-sculpting rongeur was inserted to remove adequate amounts of lamina (laminotomy) from the superior surface of the inferior operative lamina site and from the inferior aspect of the lamina above it. The laminotomy created a passage for the tissue sculpting instrument used in debulking the ligamentum flavum. The ligamentum flavum was debulked until diminished returns. A similar procedure was performed on the contralateral side. There were no complications or difficulties noted with these procedures. Upon completion of the procedure, instruments were removed, hemostasis was achieved by direct pressure, and wound closure was performed with dermabond and steristrips. The patient tolerated the procedure well. Upon transferring the patient to the recovery room, the patient?s vital signs remained stable and without any neurologic deficits. The patient was discharged with instructions to rest, continue with ice, and to demonstrate progressive mobility. The patient was given a follow-up exam time and date along with instructions and contact information for any questions or concerns. The patient is to be followed up in the office for further evaluation and treatment, as deemed appropriate and necessary, and for any concerns regarding the procedure.
[2025-06-22 14:35] LABS: Glucose, Whole Blood 264 mg/dL (60-115)
== END 2025-06-22 15:59 | disposition home or self-care (01) ==
PROVIDERS: PCP Internal Medicine Geriatric Medicine; Visit Provider Internal Medicine
PROC: (CPT 0275T; principal; 2025-06-22 12:30)
DX: Z00.6 Encounter for examination for normal comparison and control in clinical research program (principal); M48.062 Spinal stenosis, lumbar region with neurogenic claudication; G89.29 Other chronic pain; M51.360 Other intervertebral disc degeneration, lumbar region with discogenic back pain only; M54.2 Cervicalgia; R26.2 Difficulty in walking, not elsewhere classified; E11.22 Type 2 diabetes mellitus with diabetic chronic kidney disease; I12.9 Hypertensive chronic kidney disease with stage 1 through stage 4 chronic kidney disease, or unspecified chronic kidney disease; N18.9 Chronic kidney disease, unspecified; E78.00 Pure hypercholesterolemia, unspecified; M10.9 Gout, unspecified; I73.9 Peripheral vascular disease, unspecified; I69.351 Hemiplegia and hemiparesis following cerebral infarction affecting right dominant side; Z79.82 Long term (current) use of aspirin; Z79.4 Long term (current) use of insulin; Z79.84 Long term (current) use of oral hypoglycemic drugs; Z79.899 Other long term (current) drug therapy
CPT/HCPCS: 0275T; 82947; C1889; J0690; J2003; J2405; J2704; J3010

== ENCOUNTER → 2025-06-22 10:54 | Outpatient (BNV) | payer OTHER, SELFPAY | PROVIDERS: PCP Internal Medicine Geriatric Medicine; Visit Provider Internal Medicine | DX: M48.062 Spinal stenosis, lumbar region with neurogenic claudication (principal); Z00.6 Encounter for examination for normal comparison and control in clinical research program | CPT/HCPCS: 0275T ==

== ENCOUNTER 2025-09-02 11:54 | Outpatient (AMB) | payer OTHER, SELFPAY ==
--- OUTSIDE RECORDS SUMMARY | 2024-03-31 08:15 | XMS_ITS ---
Author [facility] Address [address] [place] [address] Care Team Providers Care Message Broker Developer Name Role Phone Ysabel Whyte Primary Care Provider Tish Farr [phone] Encounters Encounter Location Date Provider Diagnosis [address] [address] 03/31/2024 Tish Thakur Plan Of Treatment Next Appt Details Provider Name:Tish A Blaze , 10/12/2025 02:15:00 PM, [address] [facility], [place], [address], Progress Notes * Kallie PARRISHOB: (70 yo F)Acc No.[id number]:03/31/2024 Progress Note Patient: Mindy Keely POWERS Provider: Iam Thakur DPM :1955 A ge:69 Y S ex:Female Date:03/31/2024 Address:[address] [place], [place] [id number] Pcp:Ysabel Whyte Subjective: * Chief Complaints: * * Medical History: Objective: * Vitals: Assessment: Plan: * Treatment: * Images: * The named appointment provid er may or may not be the originator of this progress note, and it is not deemed complete until electronically signed by the appointment provider. Sign off status: Pending * Provider: Iam Thakur DPM Date: 0 03/31/2024 Generated for Ketty rivera/Morales/Simone on: 1 02:10 PM EDT
--- OUTSIDE RECORDS SUMMARY | 2024-08-20 07:00 | XMS_ITS ---
Author Organization [facility] Address [address] [place] [address] Care Team Providers Care Rehabilitation Director Name Role Phone Ysabel Whyte Primary Care Provider Tish Farr [phone] Encounters Encounter Location Date Provider Diagnosis [address] [address] 08/20/2024 Tish Thakur Plan Of Treatment Next Appt Details Provider Name:Tish A Blaze , 10/12/2025 02:15:00 PM, [address] [facility], [place], [address], Progress Notes * Kallie PARRISHOB: (70 yo F)Acc No.[id number]:08/20/2024 Progress Note Patient: Mindy Keely POWERS Provider: Iam Thakur DPM :1955 A ge:69 Y S ex:Female Date:08/20/2024 Address:[address] [place], [place] [id number] Pcp:Ysabel Whyte Subjective: * Chief Complaints: * * Medical History: Objective: * Vitals: Assessment: Plan: * Treatment: * Images: * The named appointment provid er may or may not be the originator of this progress note, and it is not deemed complete until electronically signed by the appointment provider. Sign off status: Pending * Provider: Iam Thakur DPM Date: Generated for Ketty rivera/Morales/Simone on: 1 02:11 PM EDT
--- OUTSIDE RECORDS SUMMARY | 2025-02-04 09:00 | XMS_ITS ---
Author Organization [facility] Address [address] [place] [address] Care Team Providers Care Swing Ride Operator Name Role Phone Ysabel Whyte Primary Care Provider Tish Farr [phone] Encounters Encounter Location Date Provider Diagnosis [address] [address] 02/04/2025 Tish Thakur Plan Of Treatment Next Appt Details Provider Name:Tish A Blaze , 10/12/2025 02:15:00 PM, [address] [facility], [place], [address], Progress Notes * Kallie PARRISHOB: (70 yo F)Acc No.[id number]:02/04/2025 Progress Note Patient: Mindy Keely POWERS Provider: Iam Thakur DPM :1955 A ge:69 Y S ex:Female Date:02/04/2025 Address:[address] [place], [place] [id number] Pcp:Ysabel Whyte Subjective: * Chief Complaints: * [...] DPM Date: 0 02/04/2025 Generated for Ketty rivera/Morales/Simone on: 1 02:11 PM EDT
--- NOTE | 2025-09-02 12:16 | MHC.OFFVIS ---
Vital Signs 09/02/25 12:18 Height 5 ft 7 in Weight 185 lb BMI 29.0 BP 130/66 Blood Pressure Location Lt brachial Position Sitting Respiration 16 Pulse 68 Pulse Source Pulse Oximeter Pulse Oximetry (%) 97 Oxygen Delivery Method Room Air Intake Visit Reasons: FOLLOW UP AFTER PROCEDURE Respiratory Services Manager Required: No Accompanied by: Family/Other Allergies No Known Allergies Allergy (Verified 09/02/25 12:20) Medication List - Last Reconciled 09/02/25 by Isabel Andres LPN allopurinol 300 mg PO DAILY amlodipine 10 mg PO DAILY aspirin 81 mg PO DAILY atorvastatin 80 mg PO DAILY duloxetine 40 mg PO DAILY empagliflozin (Jardiance) 25 mg PO DAILY ezetimibe 10 mg PO DAILY furosemide 40 mg PO BID gabapentin 200 mg PO TID hydralazine 10 mg PO TID insulin lispro (Humalog KwikPen U-200 Insulin) subcut insulin pump cart,cont inf,BT (Omnipod Dash Pods (Gen 4) subcutaneous cartridge) As directed lisinopril 20 mg PO DAILY lorazepam 0.5 mg PO BID PRN mirabegron ER (Myrbetriq) 25 mg PO DAILY oxybutynin chloride ER 10 mg PO DAILY HPI HPI FOLLOW UP AFTER PROCEDURE: Details: History of Present Illness The patient is a 70-year-old female presenting with low back pain and lumbar spinal stenosis. Her back pain persists with limited improvement, affecting her mobility significantly, as she can only walk about 50 feet before needing to stop. She uses an electric wheelchair for longer distances. A MILD procedure provided partial pain relief but did not enhance her walking capacity. The full procedure for her spinal stenosis has not been completed. Physical therapy for neck stiffness was not initiated due to a lack of setup by her healthcare team. A lump on her neck was evaluated and deemed a normal anatomical feature. The patient is on gabapentin and oxycodone, with concerns about their cognitive side effects, particularly regarding dementia. There is a plan to discontinue gabapentin due to its potential impact on cognitive function. Pain Description - Onset: Persistent low back pain with no significant improvement - Quality: Pain persists despite previous interventions - Location: Lower back - Exacerbating factors: Walking more than 50 feet - Relieving factors: Use of an electric wheelchair for mobility Physical Exam - Appears afebrile. - Alert and oriented. - Mood and affect appropriate. - Follows and participates in conversation appropriately. Pain Management - Affect: Pain impacts mobility and daily activities - Analgesia: Currently using gabapentin and oxycodone - Adverse Effects: Concerns about cognitive decline related to medication - Activities of Daily Living: Limited walking ability, uses electric wheelchair - Aberrant Drug Related Behaviors: None reported [facility] Medical History (Updated 09/06/25 @ 13:31 by Chava Rios MD) PTSD (post-traumatic stress disorder) OAB (overactive bladder) Osteoarthritis Depression TBI (traumatic brain injury) Diabetic neuropathy Diabetic nephropathy Back pain Stroke PVD (peripheral vascular disease) Hemiparesis, right CKD (chronic kidney disease) HTN (hypertension) Diabetes High cholesterol Gout Surgical History (Updated 06/20/25 @ 11:18 by Zita Scott RN) History of open reduction and internal fixation (ORIF) procedure Hx of hysterectomy History of carpal tunnel release Hx of lithotripsy Hx of cataract extraction History of bunionectomy History of lumbar spinal fusion History of total left hip replacement H/O colonoscopy History of total right hip replacement Hx of angioplasty History of esophagogastroduodenoscopy (EGD) Social History Patient Tobacco Use Status: Never used Tobacco Physical Exam Vital Signs: Last Vital Signs Pulse 68 09/02/25 12:18 Resp 16 09/02/25 12:18 BP 130/66 09/02/25 12:18 Pulse Ox 97 09/02/25 12:18 Oxygen Delivery Method Room Air 09/02/25 12:18 BMI result Body Mass Index 29.0 Assessment & Plan Assessment & Plan (1) Neurogenic claudication due to lumbar spinal stenosis: Code(s): M48.062 - Spinal stenosis, lumbar region with neurogenic claudication Category: Medical (2) Postlaminectomy syndrome: Code(s): M96.1 - Postlaminectomy syndrome, not elsewhere classified Category: Medical Plan Plan Patient was informed and verbally consented to the use of an ambient scribe for clinic note documentation during this visit. 1. Postlaminectomy Syndrome - Plan to conduct a trial of spinal cord stimulation to assess effectiveness in pain management. - Psychology assessment required before proceeding with the trial. 2. Lumbar Spinal Stenosis - MILD procedure provided partial relief. - Consideration of spinal cord stimulator if further intervention is needed. 3. Neck Stiffness - No physical therapy initiated; consider future intervention if necessary. 4. Dementia Concerns Related To Medication - Plan to discontinue gabapentin due to potential cognitive side effects. Discussion Notes We discussed the potential benefits and risks of a spinal cord stimulator trial for managing low back pain, emphasizing that it involves a trial period to assess effectiveness. The patient was informed about the necessity of a psychology assessment prior to the trial, which can be completed remotely while she is in [place]. We also addressed concerns about her current medications, particularly gabapentin, due to its potential cognitive side effects, and the plan to discontinue it. Patient Instructions - Complete the psychology assessment remotely while in [place]. - Contact the clinic upon returning from [place] to proceed with the spinal cord stimulator trial. - Monitor for any cognitive changes and report them to your healthcare provider. Coding Level of Care Code Est Pt Level 4 (41423) Diagnoses Neurogenic claudication due to lumbar spinal stenosis M48.062 Postlaminectomy syndrome M96.1
[2025-09-02 12:18] VITALS: BP 130/66; PULSE 68; RESP 16; O2SAT 97; BMI 29.0
--- OUTSIDE RECORDS SUMMARY | 2025-09-02 14:11 | XMS_ITS | Encounter Summary ---
Author Organization [facility] Address [address] [place] [address] Care Team Providers Care Etymology Teacher Name Role Phone Ysabel Whyte MD Primary Care Provider Encounter Details Date Type Department Care Team (Late st Contact Info) Description 08/06/2025 Lab Requisition [facility] - Main Lab [address] [facility] [address] Gage Florez MD [address] [place] [address] Type 2 diabetes mellitus without complications (CMS/HCC V24, CMS/HCC V28) Social History Tobacco Use Types Packs/Day Years [...] Associated Diagnosis Comments COMPLETE BLOOD COUNT Routine 08/08/2025 7:55 AM EDT Type 2 diabetes mellitus without complications (CMS/HCC V24, CMS/HCC V28) COMPREHENSIVE METABOLIC PANEL Routine 08/08/2025 7:55 AM EDT Type 2 diabetes mellitus without complications (CMS/HCC V24, CMS/HCC V28) documented in this encounter Results * (ABNORMAL) Complete blood count (08/08/2025 7:55 AM EDT) WBC 7.3 4.8 - 10.8 [facility] LAB HEMETOLOGY METHOD 08/08/2025 10:48 AM [facility] LAB RBC 3.50(L) 3.80 - 4.80 M/mcL LAB HEMETOLOGY METHOD 08/08/2025 10:48 AM [facility] LAB Hemoglobin 10.4(L) 11.5 - 16.0 g/dL LAB HEMETOLOGY METHOD 08/08/2025 10:48 AM [facility] LAB Hematocrit 32.4(L) 35.0 - 47.0 % LAB HEMETOLOGY METHOD 08/08/2025 10:48 AM [facility] LAB MCV 93.6 79.0 - 98.0 FL LAB HEMETOLOGY METHOD 08/08/2025 10:48 AM [facility] LAB MCH 30.1 27.0 - 32.0 pcg LAB HEMETOLOGY METHOD 08/08/2025 10:48 AM [facility] LAB MCHC 32.1 32.0 - 37.0 g/dL LAB HEMETOLOGY METHOD 08/08/2025 10:48 AM [facility] LAB RDW 14.0 11.0 - 15.0 % LAB HEMETOLOGY METHOD 08/08/2025 10:48 AM [facility] LAB Platelets 280 130 - 400 K/mcL LAB HEMETOLOGY METHOD 08/08/2025 10:48 AM [facility] LAB MPV 10.5 7.0 - 11.0 FL LAB HEMETOLOGY METHOD 08/08/2025 10:48 AM [facility] LAB NRBC 0.0 <1.0 % LAB HEMETOLOGY METHOD 08/08/2025 10:48 AM [facility] LAB NRBC Absolute 0.00 <0.10 K/mcL LAB HEMETOLOGY METHOD 08/08/2025 10:48 AM [facility] LAB Blood Venous blood specimen / Unknown Venipuncture / Unknown 08/08/2025 7:55 AM EDT 08/08/2025 10:30 AM EDT us Gage Florez MD LAB BLOOD ORDERABLES Final Result [facility] [address] [place] [address], [place] [phone] * (ABNORMAL) Comprehensive metabolic panel (08/08/2025 7:55 AM EDT) Sodium 146(H) 133 - 145 mmol/L LAB CHEMISTRY METHOD 08/08/2025 11:09 AM T [facility] LAB Potassium 3.7 3.5 - 5.5 mmol/L LAB CHEMISTRY METHOD 08/08/2025 11:09 AM [facility] LAB Chloride 111(H) 96 - 110 mmol/L LAB CHEMISTRY METHOD 08/08/2025 11:09 AM [facility] LAB CO2 28 21 - 32 mmol/L LAB CHEMISTRY METHOD 08/08/2025 11:09 AM [facility] LAB Anion Gap 7 3 - 11 LAB CHEMISTRY METHOD 08/08/2025 11:09 AM [facility] LAB Glucose 172(H) 70 - 100 mg/dL LAB CHEMISTRY METHOD 08/08/2025 11:09 AM [facility] LAB BUN 42(H) 5 - 25 mg/dL LAB CHEMISTRY METHOD 08/08/2025 11:09 AM [facility] LAB Creatinine 2.55(H) 0.50 - 1.10 mg/dL LAB CHEMISTRY METHOD 08/08/2025 11:09 AM [facility] LAB eGFR 20(L) >=60 mL/min/1. 73m2 LAB CHEMISTRY METHOD 08/08/2025 11:09 AM [facility] LAB Comment:Calculation based on the Chronic Kidney Disease Epidemiology Collaboration (CKD-EPI) equation refit without adjustment for race. BUN/Creatinine Ratio 16.5 LAB CHEMISTRY METHOD 08/08/2025 11:09 AM [facility] LAB Calcium 8.7 8.5 - 10.5 mg/dL LAB CHEMISTRY METHOD 08/08/2025 11:09 AM [facility] LAB AST (SGOT) 25 10 - 42 unit/L LAB CHEMISTRY METHOD 08/08/2025 11:09 AM [facility] ALT (SGPT) 29 10 - 60 unit/L LAB CHEMISTRY METHOD 08/08/2025 11:09 AM [facility] LAB Alkaline Phosphatase 170(H) 42 - 121 unit/L LAB CHEMISTRY METHOD 08/08/2025 11:09 AM [facility] LAB Total Protein 6.1 6.0 - 8.0 g/dL LAB CHEMISTRY METHOD 08/08/2025 11:09 AM [facility] Albumin 2.8(L) 3.2 - 5.0 g/dL LAB CHEMISTRY METHOD 08/08/2025 11:09 AM [facility] LAB Total Bilirubin 0.3 0.0 - 1.4 mg/dL LAB CHEMISTRY METHOD 08/08/2025 11:09 AM [facility] LAB Blood Venous blood specimen / Unknown Venipuncture / Unknown 08/08/2025 7:55 AM EDT 08/08/2025 10:27 AM EDT us Gage Florez MD LAB BLOOD ORDERABLES Final Result [facility] [address] [place] [address], [place] [phone] documented in this encounter Visit Diagnoses Diagnosis Type 2 diabetes mellitus without complications (CMS/HCC V24, CMS/HCC V28) documented in this encounter Care Teams Etymology Teacher Relationship Specialty Start Date End Date Ysabel Whyte MD [address] [place], [place] PCP - General Internal Medicine 02/20/22 documented as of this encounter
--- OUTSIDE RECORDS SUMMARY | 2025-09-02 14:11 | XMS_ITS | Encounter Summary ---
Author Organization [facility] Address [address] [place] [id number] Care Team Providers Care Measurement Operator Name Role Phone Ysabel Whyte MD Primary Care Provider + [phone] Encounter Details Date Type Department Care Team (Late st Contact Info) Description 07/15/2025 Lab Requisition [facility] - Main Lab [address] [facility] [place] [address] Callie Tran MD [address] [phone] Chronic diastolic (congestive) heart failure (CMS/HCC V24, CMS/HCC V28); Chronic kidney disease, stage 4 (severe) (CMS/HCC V24, CMS/HCC V28); Type 2 diabetes mellitus without complications (CMS/HCC V24, CMS/HCC V28); Gout, unspecified; Vitamin D deficiency, unspecified; Personal history of other diseases of the musculoskeletal system and connective tissue Social History Tobacco Use Types Packs/Day Years [...] Associated Diagnosis Comments COMPLETE BLOOD COUNT Routine 07/18/2025 7:13 AM EDT Chronic diastolic (congestive) heart failure (CMS/HCC V24, CMS/HCC V28) Chronic kidney disease, stage 4 (severe) (CMS/HCC V24, CMS/HCC V28) Type 2 diabetes mellitus without complications (CMS/HCC V24, CMS/HCC V28) Gout, unspecified Vitamin D deficiency, unspecified Personal history of other diseases of the musculoskeletal system and connective tissue BASIC METABOLIC PANEL Routine 07/18/2025 7:13 AM EDT Chronic diastolic (congestive) heart failure ([facility] V24, [facility] V28) Chronic kidney disease, stage 4 (severe) ([facility] V24, [facility] V28) Type 2 diabetes mellitus without complications ([facility] V24, [facility] V28) Gout, unspecified Vitamin D deficiency, unspecified Personal history of other diseases of the musculoskeletal system and connective tissue documented in this encounter Results * (ABNORMAL) Basic metabolic panel (07/18/2025 7:13 AM EDT) Sodium 144 133 - 145 mmol/L LAB CHEMISTRY METHOD 07/18/2025 11:40 AM [facility] LAB Potassium 4.1 3.5 - 5.5 mmol/L LAB CHEMISTRY METHOD 07/18/2025 11:40 AM [facility] LAB Chloride 112(H) 96 - 110 mmol/L LAB CHEMISTRY METHOD 07/18/2025 11:40 AM [facility] LAB CO2 25 21 - 32 mmol/L LAB CHEMISTRY METHOD 07/18/2025 11:40 AM [facility] Anion Gap 7 3 - 11 LAB CHEMISTRY METHOD 07/18/2025 11:40 AM [facility] LAB Glucose 168(H) 70 - 100 mg/dL LAB CHEMISTRY METHOD 07/18/2025 11:40 AM [facility] BUN 31(H) 5 - 25 mg/dL LAB CHEMISTRY METHOD 07/18/2025 11:40 AM [facility] LAB Creatinine 2.92(H) 0.50 - 1.10 mg/dL LAB CHEMISTRY METHOD 07/18/2025 11:40 AM [facility] LAB eGFR 17(L) >=60 mL/min/1. 73m2 LAB CHEMISTRY METHOD 07/18/2025 11:40 AM [facility] LAB Comment:Calculation based on the Chronic Kidney Disease Epidemiology Collaboration (CKD-EPI) equation refit without adjustment for race. BUN/Creatinine Ratio 10.6 LAB CHEMISTRY METHOD 07/18/2025 11:40 AM T [facility] LAB Calcium 8.6 8.5 - 10.5 mg/dL LAB CHEMISTRY METHOD 07/18/2025 11:40 AM [facility] LAB Blood Venous blood specimen / Unknown Venipuncture / Unknown 07/18/2025 7:13 AM EDT 07/18/2025 10:49 AM EDT us Callie Tran MD LAB BLOOD ORDERABLES Fin al Result [facility] [address] [place] [address], * (ABNORMAL) Complete blood count (07/18/2025 7:13 AM EDT) WBC 8.1 4.8 - 10.8 K/mcL LAB HEMETOLOGY METHOD 07/18/2025 11:01 AM [facility] LAB RBC 3.20(L) 3.80 - 4.80 M/mcL LAB HEMETOLOGY METHOD 07/18/2025 11:01 AM [facility] LAB Hemoglobin 9.5(L) 11.5 - 16.0 g/dL LAB HEMETOLOGY METHOD 07/18/2025 11:01 AM [facility] LAB Hematocrit 30.0(L) 35.0 - 47.0 % LAB HEMETOLOGY METHOD 07/18/2025 11:01 AM [facility] LAB MCV 95.2 79.0 - 98.0 FL LAB HEMETOLOGY METHOD 07/18/2025 11:01 AM [facility] LAB MCH 30.2 27.0 - 32.0 pcg LAB HEMETOLOGY METHOD 07/18/2025 11:01 AM EDT [facility] LAB MCHC 31.7(L) 32.0 - 37.0 g/dL LAB HEMETOLOGY METHOD 07/18/2025 11:01 AM [facility] LAB RDW 14.4 11.0 - 15.0 % LAB HEMETOLOGY METHOD 07/18/2025 11:01 AM [facility] LAB Platelets 228 130 - 400 K/mcL LAB HEMETOLOGY METHOD 07/18/2025 11:01 AM [facility] LAB MPV 10.6 7.0 - 11.0 FL LAB HEMETOLOGY METHOD 07/18/2025 11:01 AM [facility] LAB NRBC 0.0 <1.0 % LAB HEMETOLOGY METHOD 07/18/2025 11:01 AM [facility] LAB NRBC Absolute 0.00 <0.10 K/mcL LAB HEMETOLOGY METHOD 07/18/2025 11:01 AM [facility] LAB Blood Venous blood specimen / Unknown Venipuncture / Unknown 07/18/2025 7:13 AM EDT 07/18/2025 10:49 AM EDT us Callie Tran MD LAB BLOOD ORDERABLES Fin al Result [facility] [address] [place] [address], documented in this encounter Visit Diagnoses Diagnosis Chronic diastolic (congestive) heart failure ([facility]/HCC V24, [facility] V28) Chronic kidney disease, stage 4 (severe) (CMS/HCC V24, [facility] V28) Type 2 diabetes mellitus without complications ([facility] V24, [facility] V28) Gout, unspecified Vitamin D deficiency, unspecified Personal history of other diseases of the musculoskeletal system and connective tissue documented in this encounter Care Teams Measurement Operator Relationship Specialty Start Date End Date Ysabel Whyte MD [address] [place] [address] PCP - General Internal Medicine 02/20/22 documented as of this encounter
--- OUTSIDE RECORDS SUMMARY | 2025-09-02 14:11 | XMS_ITS | Encounter Summary ---
Author Organization [facility] Address [address] [place] [address] Care Team Providers Care Manager Diesel Name Role Phone Ysabel Whyte MD Primary Care Provider Encounter Details Date Type Department Care Team (Late st Contact Info) Description 01/12/2025 Lab Requisition [facility] - Main Lab [address] [place] [address] Manoj Max MD [address] [place] [address] Type 2 diabetes mellitus without complications (CMS/HCC [...] Associated Diagnosis Comments COMPLETE BLOOD COUNT Routine 01/12/2025 5:18 AM EST Type 2 diabetes mellitus without complications (CMS/HCC) COMPREHENSIVE METABOLIC PANEL Routine 01/12/2025 5:18 AM EST Type 2 diabetes mellitus without complications (CMS/HCC) documented in this encounter Results * (ABNORMAL) Comprehensive metabolic panel (01/12/2025 5:18 AM EST) Sodium 143 133 - 145 mmol/L LAB CHEMISTRY METHOD 01/12/2025 12:55 PM EST [facility] Potassium 4.3 3.5 - 5.5 mmol/L LAB CHEMISTRY METHOD 01/12/2025 12:55 PM [facility] Chloride 110 96 - 110 mmol/L LAB CHEMISTRY METHOD 01/12/2025 12:55 PM [facility] CO2 25 21 - 32 mmol/L LAB CHEMISTRY METHOD 01/12/2025 12:55 PM [facility] Anion Gap 8 3 - 11 LAB CHEMISTRY METHOD 01/12/2025 12:55 PM [facility] Glucose 256(H) 70 - 100 mg/dL LAB CHEMISTRY METHOD 01/12/2025 12:55 PM [facility] BUN 30(H) 5 - 25 mg/dL LAB CHEMISTRY METHOD 01/12/2025 12:55 PM [facility] Creatinine 2.70(H) 0.50 - 1.10 mg/dL LAB CHEMISTRY METHOD 01/12/2025 12:55 PM [facility] eGFR 18(L) >=60 mL/min/1. 73m2 LAB CHEMISTRY METHOD 01/12/2025 12:55 PM [facility] Comment:Calculation based on the Chronic Kidney Disease Epidemiology Collaboration (CKD-EPI) equation refit without adjustment for race. BUN/Creatinine Ratio 11.1 LAB CHEMISTRY METHOD 01/12/2025 12:55 PM [facility] Calcium 8.5 8.5 - 10.5 mg/dL LAB CHEMISTRY METHOD 01/12/2025 12:55 PM [facility] AST (SGOT) 16 10 - 42 unit/L LAB CHEMISTRY METHOD 01/12/2025 12:55 PM [facility] ALT (SGPT) 15 10 - 60 unit/L LAB CHEMISTRY METHOD 01/12/2025 12:55 PM [facility] Alkaline Phosphatase 138(H) 42 - 121 unit/L LAB CHEMISTRY METHOD 01/12/2025 12:55 PM [facility] Total Protein 5.6(L) 6.0 - 8.0 g/dL LAB CHEMISTRY METHOD 01/12/2025 12:55 PM [facility] Albumin 2.6(L) 3.2 - 5.0 g/dL LAB CHEMISTRY METHOD 01/12/2025 12:55 PM [facility] Total Bilirubin 0.4 0.0 - 1.4 mg/dL LAB CHEMISTRY METHOD 01/12/2025 12:55 PM [facility] Blood Venous blood specimen / Unknown Venipuncture / Unknown 01/12/2025 5:18 AM EST 01/12/2025 10:33 AM EST us Manoj Max MD LAB BLOOD ORDERABLES Final Resul t [facility] [address] [place] [address], * (ABNORMAL) Complete blood count (01/12/2025 5:18 AM EST) WBC 6.6 4.8 - 10.8 K/mcL LAB HEMETOLOGY METHOD 01/12/2025 10:49 AM [facility] RBC 3.70(L) 3.80 - 4.80 M/mcL LAB HEMETOLOGY METHOD 01/12/2025 10:49 AM [facility] Hemoglobin 11.1(L) 11.5 - 16.0 g/dL LAB HEMETOLOGY METHOD 01/12/2025 10:49 AM [facility] Hematocrit 34.3(L) 35.0 - 47.0 % LAB HEMETOLOGY METHOD 01/12/2025 10:49 AM [facility] MCV 93.5 79.0 - 98.0 FL LAB HEMETOLOGY METHOD 01/12/2025 10:49 AM [facility] MCH 30.2 27.0 - 32.0 pcg LAB HEMETOLOGY METHOD 01/12/2025 10:49 AM [facility] MCHC 32.4 32.0 - 37.0 g/dL LAB HEMETOLOGY METHOD 01/12/2025 10:49 AM EST [facility] RDW 14.3 11.0 - 15.0 % LAB HEMETOLOGY METHOD 01/12/2025 10:49 AM [facility] Platelets 256 130 - 400 K/mcL LAB HEMETOLOGY METHOD 01/12/2025 10:49 AM [facility] MPV 10.7 7.0 - 11.0 FL LAB HEMETOLOGY METHOD 01/12/2025 10:49 AM [facility] NRBC 0.0 <1.0 % LAB HEMETOLOGY METHOD 01/12/2025 10:49 AM [facility] NRBC Absolute 0.00 <0.10 K/mcL LAB HEMETOLOGY METHOD 01/12/2025 10:49 AM [facility] Blood Venous blood specimen / Unknown Venipuncture / Unknown 01/12/2025 5:18 AM EST 01/12/2025 10:33 AM EST us Manoj Max MD LAB BLOOD ORDERABLES Final Resul t [facility] [address] [place] [address], documented in this encounter Visit Diagnoses Diagnosis Type 2 diabetes mellitus without complications (CMS/HCC V24, CMS/HCC V28) documented in this encounter Care Teams Manager Diesel Relationship Specialty Start Date End Date Ysabel Whyte MD [address] [place], [place] PCP - General Internal Medicine 02/20/22 documented as of this encounter
--- OUTSIDE RECORDS SUMMARY | 2025-09-02 14:11 | XMS_ITS | Encounter Summary ---
Author Organization [facility] Address [address] [place] [address] Care Team Providers Care Collections Clerk Name Role Phone Ysabel Whyte MD Primary Care Provider Encounter Details Date Type Department Care Team (Late st Contact Info) Description 04/06/2025 Lab Requisition [facility] - Main Lab [address] [facility] [place] [address] Baldemar Tracy MD [address] [facility] [address] [place] [address] Urinary tract infection, site not specified; Overactive bladder Social History Tobacco Use Types Packs/Day Years [...] Procedure Name Priority Date/Time Associated Diagnosis Comments CULTURE URINE Routine 04/06/2025 3:30 PM EDT Urinary tract infection, site not specified Overactive bladder documented in this encounter Results * Culture urine (04/06/2025 3:30 PM EDT) Culture, Urine 10,000-49,000 CFU/mL Mixed urogenital mariluz, no uropathogens present. Suggest repeat specimen if clinically indicated. 04/07/2025 11:12 AM EDT [facility] Urine Urine specimen obtained by clean catch procedure / Unknown 04/06/2025 3:30 PM EDT 04/06/2025 5:37 PM EDT us Baldemar Tracy MD LAB MICROBIOLOGY - GENERAL ORDERABLES Final Result [facility] [address] [place] [address], documented in this encounter Visit Diagnoses Diagnosis Urinary tract infection, site not specified Overactive bladder Hypertonicity of bladder documented in this encounter Care Teams Collections Clerk Relationship Specialty Start Date End Date Ysabel Whyte MD [address] [place], [place] PCP - General Internal Medicine 02/20/22 documented as of this encounter
--- OUTSIDE RECORDS SUMMARY | 2025-09-02 14:11 | XMS_ITS | Encounter Summary ---
Author Organization [facility] Address [address] [place] [phone] Care Team Providers Care Algebraist Name Role Phone Ysabel Whyte MD Primary Care Provider + [phone] Encounter Details Date Type Department Care Team (Late st Contact Info) Description 07/12/2025 Lab Requisition [facility] - Main Lab [address] [facility] [address] Callie Tran MD [address] [phone] Chronic diastolic (congestive) heart failure (CMS/HCC V24, CMS/[facility] V28); Chronic kidney disease, stage 4 (severe) (CMS/HCC V24, CMS/[facility] V28); Type 2 diabetes mellitus without complications ([facility] V24, CMS/[facility] V28); Personal history of other diseases of the musculoskeletal system and connective tissue; Gout, unspecified; Vitamin D deficiency, unspecified Social History Tobacco Use Types Packs/Day Years [...] Procedure Name Priority Date/Time Associated Diagnosis Comments VITAMIN D 25 HYDROXY Routine 07/12/2025 8:05 AM EDT Chronic diastolic (congestive) heart failure (CMS/HCC V24, CMS/[facility] V28) Chronic kidney disease, stage 4 (severe) (CMS/HCC V24, CMS/[facility] V28) Type 2 diabetes mellitus without complications (CMS/[facility] V24, CMS/[facility] V28) Personal history of other diseases of the musculoskeletal system and connective tissue Gout, unspecified Vitamin D deficiency, unspecified COMPLETE BLOOD COUNT Routine 07/12/2025 8:05 AM EDT Chronic diastolic (congestive) heart failure ([facility]/HCC V24, CMS/HCC V28) Chronic kidney disease, stage 4 (severe) (CMS/HCC V24, CMS/HCC V28) Type 2 diabetes mellitus without complications (CMS/HCC V24, CMS/HCC V28) Personal history of other diseases of the musculoskeletal system and connective tissue Gout, unspecified Vitamin D deficiency, unspecified THYROID STIMULATING HORMONE Routine 07/12/2025 8:05 AM EDT Chronic diastolic (congestive) heart failure (CMS/HCC V24, CMS/HCC V28) Chronic kidney disease, stage 4 (severe) (CMS/HCC V24, CMS/HCC V28) Type 2 diabetes mellitus without complications (CMS/HCC V24, CMS/[facility] V28) Personal history of other diseases of the musculoskeletal system and connective tissue Gout, unspecified Vitamin D deficiency, unspecified MAGNESIUM Routine 07/12/2025 8:05 AM EDT Chronic diastolic (congestive) heart failure (CMS/HCC V24, CMS/HCC V28) Chronic kidney disease, stage 4 (severe) (CMS/HCC V24, CMS/HCC V28) Type 2 diabetes mellitus without complications (CMS/HCC V24, CMS/HCC V28) Personal history of other diseases of the musculoskeletal system and connective tissue Gout, unspecified Vitamin D deficiency, unspecified HEMOGLOBIN A1C Routine 07/12/2025 8:05 AM EDT Chronic diastolic (congestive) heart failure (CMS/HCC V24, CMS/HCC V28) Chronic kidney disease, stage 4 (severe) (CMS/HCC V24, CMS/HCC V28) Type 2 diabetes mellitus without complications (CMS/HCC V24, CMS/HCC V28) Personal history of other diseases of the musculoskeletal system and connective tissue Gout, unspecified Vitamin D deficiency, unspecified FOLATE Routine 07/12/2025 8:05 AM EDT Chronic diastolic (congestive) heart failure (CMS/HCC V24, CMS/HCC V28) Chronic kidney disease, stage 4 (severe) (CMS/HCC V24, [facility] V28) Type 2 diabetes mellitus without complications ([facility] V24, [facility] V28) Personal history of other diseases of the musculoskeletal system and connective tissue Gout, unspecified Vitamin D deficiency, unspecified VITAMIN B12 Routine 07/12/2025 8:05 AM EDT Chronic diastolic (congestive) heart failure ([facility] V24, [facility] V28) Chronic kidney disease, stage 4 (severe) ([facility] V24, [facility] V28) Type 2 diabetes mellitus without complications ([facility] V24, [facility] V28) Personal history of other diseases of the musculoskeletal system and connective tissue Gout, unspecified Vitamin D deficiency, unspecified COMPREHENSIVE METABOLIC PANEL Routine 07/12/2025 8:05 AM EDT Chronic diastolic (congestive) heart failure ([facility] V24, [facility] V28) Chronic kidney disease, stage 4 (severe) ([facility] V24, [facility] V28) Type 2 diabetes mellitus without complications ([facility] V24, [facility] V28) Personal history of other diseases of the musculoskeletal system and connective tissue Gout, unspecified Vitamin D deficiency, unspecified documented in this encounter Results * (ABNORMAL) Hemoglobin A1c (07/12/2025 8:05 AM EDT) Hemoglobin A1C 8.3(H) <6.5 % LAB CHEMISTRY METHOD 07/12/2025 2:24 PM EDT [facility] Mean Bld Glu Estim. 192 mg/dL LAB CHEMISTRY METHOD 07/12/2025 2:24 PM EDT [facility] Blood Venous blood specimen / Unknown Venipuncture / Unknown 07/12/2025 8:05 AM EDT 07/12/2025 11:40 AM EDT us Callie Tran MD LAB BLOOD ORDERABLES Fin al Result [facility] [address] [place] [address], [place] [phone] * Vitamin B12 (07/12/2025 8:05 AM EDT) [facility] Vitamin B-12 325 250 - 900 pcg/mL LAB CHEMISTRY METHOD 07/12/2025 3:29 PM EDT [facility] Blood Venous blood specimen / Unknown Venipuncture / Unknown 07/12/2025 8:05 AM EDT 07/12/2025 11:40 AM EDT Callie Tran MD LAB BLOOD ORDERABLES Fin al Result Performing Organization Address City/[facility]/ZIP Co de Phone Number [facility] [address] [place] [address], [place] [phone] * (ABNORMAL) Vitamin D 25 hydroxy (07/12/2025 8:05 AM EDT) [facility] Vit D, 25-Hydroxy 11.6(L) 30.0 - 80.0 ng/mL LAB CHEMISTRY METHOD 07/12/2025 4:45 PM EDT [facility] Blood Venous blood specimen / Unknown Venipuncture / Unknown 07/12/2025 8:05 AM EDT 07/12/2025 11:40 AM EDT Callie Tran MD LAB BLOOD ORDERABLES Fin al Result Performing Organization Address City/[facility]/ZIP Co de Phone Number [facility] [address] [place] [address], [place] [phone] * (ABNORMAL) Folate (07/12/2025 8:05 AM EDT) [facility] Folate >20.0(H) 2.8 - 17.0 ng/ml LAB CHEMISTRY METHOD 07/12/2025 3:29 PM EDT [facility] Blood Venous blood specimen / Unknown Venipuncture / Unknown 07/12/2025 8:05 AM EDT 07/12/2025 11:40 AM EDT Callie Tran MD LAB BLOOD ORDERABLES Fin al Result Performing Organization Address [facility] Co de Phone Number [facility] [address] [place] [address], [place] [phone] * Magnesium (07/12/2025 8:05 AM EDT) [facility] Magnesium 2.5 1.9 - 2.6 mg/dL LAB CHEMISTRY METHOD 07/12/2025 2:57 PM EDT [facility] Blood Venous blood specimen / Unknown Venipuncture / Unknown 07/12/2025 8:05 AM EDT 07/12/2025 11:40 AM EDT Callie Tran MD LAB BLOOD ORDERABLES Fin al Result Performing Organization Address [facility] de Phone Number [facility] [address] [place] [address], [place] [phone] * Thyroid stimulating hormone (07/12/2025 8:05 AM EDT) [facility] TSH 2.58 0.40 - 4.00 mcIU/mL LAB CHEMISTRY METHOD 07/12/2025 4:45 PM EDT [facility] Blood Venous blood specimen / Unknown Venipuncture / Unknown 07/12/2025 8:05 AM EDT 07/12/2025 11:40 AM EDT Callie Tran MD LAB BLOOD ORDERABLES Fin al Result Performing Organization Address [facility]/ZIP Co de Phone Number [facility] [address] [place] [address], [place] [phone] * (ABNORMAL) Comprehensive metabolic panel (07/12/2025 8:05 AM EDT) Sodium 146(H) 133 - 145 mmol/L LAB CHEMISTRY METHOD 07/12/2025 3:29 PM [facility] Potassium 4.2 3.5 - 5.5 mmol/L LAB CHEMISTRY METHOD 07/12/2025 3:29 PM [facility] Chloride 115(H) 96 - 110 mmol/L LAB CHEMISTRY METHOD 07/12/2025 3:29 PM [facility] CO2 22 21 - 32 mmol/L LAB CHEMISTRY METHOD 07/12/2025 3:29 PM [facility] Anion Gap 9 3 - 11 LAB CHEMISTRY METHOD 07/12/2025 3:29 PM [facility] Glucose 210(H) 70 - 100 mg/dL LAB CHEMISTRY METHOD 07/12/2025 3:29 PM [facility] BUN 28(H) 5 - 25 mg/dL LAB CHEMISTRY METHOD 07/12/2025 3:29 PM [facility] Creatinine 2.38(H) 0.50 - 1.10 mg/dL LAB CHEMISTRY METHOD 07/12/2025 3:29 PM [facility] eGFR 21(L) >=60 mL/min/1. 73m2 LAB CHEMISTRY METHOD 07/12/2025 3:29 PM [facility] Comment:Calculation based on the Chronic Kidney Disease Epidemiology Collaboration (CKD-EPI) equation refit without adjustment for race. BUN/Creatinine Ratio 11.8 LAB CHEMISTRY METHOD 07/12/2025 3:29 PM [facility] Calcium 8.4(L) 8.5 - 10.5 mg/dL LAB CHEMISTRY METHOD 07/12/2025 3:29 PM [facility] AST (SGOT) 18 10 - 42 unit/L LAB CHEMISTRY METHOD 07/12/2025 3:29 PM [facility] ALT (SGPT) 17 10 - 60 unit/L LAB CHEMISTRY METHOD 07/12/2025 3:29 PM EDT [facility] Alkaline Phosphatase 139(H) 42 - 121 unit/L LAB CHEMISTRY METHOD 07/12/2025 3:29 PM EDT [facility] Total Protein 5.7(L) 6.0 - 8.0 g/dL LAB CHEMISTRY METHOD 07/12/2025 3:29 PM [facility] Albumin 2.6(L) 3.2 - 5.0 g/dL LAB CHEMISTRY METHOD 07/12/2025 3:29 PM EDT [facility] Total Bilirubin 0.4 0.0 - 1.4 mg/dL LAB CHEMISTRY METHOD 07/12/2025 3:29 PM [facility] Blood Venous blood specimen / Unknown Venipuncture / Unknown 07/12/2025 8:05 AM EDT 07/12/2025 11:40 AM EDT Callie Trna MD LAB BLOOD ORDERABLES Fin al Result [facility] [address] [place] [address], * (ABNORMAL) Complete blood count (07/12/2025 8:05 AM EDT) WBC 9.2 4.8 - 10.8 K/mcL LAB HEMETOLOGY METHOD 07/12/2025 1:07 PM [facility] RBC 3.30(L) 3.80 - 4.80 M/mcL LAB HEMETOLOGY METHOD [facility] Hemoglobin 9.8(L) 11.5 - 16.0 g/dL LAB HEMETOLOGY METHOD 07/12/2025 1:07 PM [facility] Hematocrit 30.9(L) 35.0 - 47.0 % LAB HEMETOLOGY METHOD 07/12/2025 1:07 PM EDT [facility] MCV 95.1 79.0 - 98.0 FL LAB HEMETOLOGY METHOD 07/12/2025 1:07 PM EDT [facility] MCH 30.2 27.0 - 32.0 pcg LAB HEMETOLOGY METHOD 07/12/2025 1:07 PM EDT [facility] MCHC 31.7(L) 32.0 - 37.0 g/dL LAB HEMETOLOGY METHOD 07/12/2025 1:07 PM EDT [facility] RDW 14.2 11.0 - 15.0 % LAB HEMETOLOGY METHOD 07/12/2025 1:07 PM EDT [facility] Platelets 295 130 - 400 K/mcL LAB HEMETOLOGY METHOD 07/12/2025 1:07 PM EDT [facility] MPV 10.4 7.0 - 11.0 FL LAB HEMETOLOGY METHOD 07/12/2025 1:07 PM EDT [facility] NRBC 0.0 <1.0 % LAB HEMETOLOGY METHOD 07/12/2025 1:07 PM EDT [facility] NRBC Absolute 0.00 <0.10 K/mcL LAB HEMETOLOGY METHOD 07/12/2025 1:07 PM EDT [facility] Blood Venous blood specimen / Unknown Venipuncture / Unknown 07/12/2025 8:05 AM EDT 07/12/2025 11:40 AM EDT us Callie Tran MD LAB BLOOD ORDERABLES Fin al Result [facility] [address] [place] [address], documented in this encounter Visit Diagnoses Diagnosis Chronic diastolic (congestive) heart failure (CMS/HCC V24, CMS/HCC V28) Chronic kidney disease, stage 4 (severe) (CMS/HCC V24, CMS/HCC V28) Type 2 diabetes mellitus without complications ([facility] V24, [facility] V28) Personal history of other diseases of the musculoskeletal system and connective tissue Gout, unspecified Vitamin D deficiency, unspecified documented in this encounter Care Teams Algebraist Relationship Specialty Start Date End Date Ysabel Whyte MD [address] [place] PCP - General Internal Medicine 02/20/22 documented as of this encounter
--- OUTSIDE RECORDS SUMMARY | 2025-09-02 14:11 | XMS_ITS | Encounter Summary ---
Author Organization [facility] Address [address] [place] [address] Care Team Providers Care Fishing Gear Mechanic Name Role Phone Ysabel Whyte MD Primary Care Provider [phone] Encounter Details Date Type Department Care Team (Late st Contact Info) Description 08/14/[address] [facility] - Main Lab [address] [facility] [place] [address] Gage Florez MD [address] [place] [address] Type 2 diabetes mellitus without complications (CMS/HCC [...] Associated Diagnosis Comments COMPLETE BLOOD COUNT Routine 08/15/2025 7:51 AM EDT Type 2 diabetes mellitus without complications (CMS/HCC V24, CMS/HCC V28) COMPREHENSIVE METABOLIC PANEL Routine 08/15/2025 7:51 AM EDT Type 2 diabetes mellitus without complications (CMS/HCC V24, CMS/HCC V28) documented in this encounter Results * (ABNORMAL) Complete blood count (08/15/2025 7:51 AM EDT) WBC 6.5 4.8 - 10.8 K/[facility] LAB HEMETOLOGY METHOD 08/15/2025 11:20 AM [facility] LAB RBC 3.40(L) 3.80 - 4.80 M/mcL LAB HEMETOLOGY METHOD 08/15/2025 11:20 AM [facility] LAB Hemoglobin 10.5(L) 11.5 - 16.0 g/dL LAB HEMETOLOGY METHOD 08/15/2025 11:20 AM [facility] LAB Hematocrit 32.2(L) 35.0 - 47.0 % LAB HEMETOLOGY METHOD 08/15/2025 11:20 AM [facility] LAB MCV 93.9 79.0 - 98.0 FL LAB HEMETOLOGY METHOD 08/15/2025 11:20 AM [facility] LAB MCH 30.6 27.0 - 32.0 pcg LAB HEMETOLOGY METHOD 08/15/2025 11:20 AM [facility] LAB MCHC 32.6 32.0 - 37.0 g/dL LAB HEMETOLOGY METHOD 08/15/2025 11:20 AM [facility] LAB RDW 13.8 11.0 - 15.0 % LAB HEMETOLOGY METHOD 08/15/2025 11:20 AM [facility] LAB Platelets 245 130 - 400 K/mcL LAB HEMETOLOGY METHOD 08/15/2025 11:20 AM [facility] LAB MPV 11.0 7.0 - 11.0 FL LAB HEMETOLOGY METHOD 08/15/2025 11:20 AM [facility] LAB NRBC 0.0 <1.0 % LAB HEMETOLOGY METHOD 08/15/2025 11:20 AM [facility] LAB NRBC Absolute 0.00 <0.10 K/mcL LAB HEMETOLOGY METHOD 08/15/2025 11:20 AM [facility] LAB Blood Venous blood specimen / Unknown Venipuncture / Unknown 08/15/2025 7:51 AM EDT 08/15/2025 10:10 AM EDT us Gage Florez MD LAB BLOOD ORDERABLES Final Result [facility] [address] [place] [address], [place] [phone] * (ABNORMAL) Comprehensive metabolic panel (08/15/2025 7:51 AM EDT) Sodium 144 133 - 145 mmol/L LAB CHEMISTRY METHOD 08/15/2025 11:49 AM [facility] LAB Potassium 4.1 3.5 - 5.5 mmol/L LAB CHEMISTRY METHOD 08/15/2025 11:49 AM [facility] LAB Chloride 109 96 - 110 mmol/L LAB CHEMISTRY METHOD 08/15/2025 11:49 AM [facility] LAB CO2 27 21 - 32 mmol/L LAB CHEMISTRY METHOD 08/15/2025 11:49 AM [facility] LAB Anion Gap 8 3 - 11 LAB CHEMISTRY METHOD 08/15/2025 11:49 AM [facility] LAB Glucose 236(H) 70 - 100 mg/dL LAB CHEMISTRY METHOD 08/15/2025 11:49 AM [facility] LAB BUN 37(H) 5 - 25 mg/dL LAB CHEMISTRY METHOD 08/15/2025 11:49 AM [facility] LAB Creatinine 2.46(H) 0.50 - 1.10 mg/dL LAB CHEMISTRY METHOD 08/15/2025 11:49 AM [facility] LAB eGFR 20(L) >=60 mL/min/1. 73m2 LAB CHEMISTRY METHOD 08/15/2025 11:49 AM [facility] LAB Comment:Calculation based on the Chronic Kidney Disease Epidemiology Collaboration (CKD-EPI) equation refit without adjustment for race. BUN/Creatinine Ratio 15.0 LAB CHEMISTRY METHOD 08/15/2025 11:49 AM [facility] LAB Calcium 9.0 8.5 - 10.5 mg/dL LAB CHEMISTRY METHOD 08/15/2025 11:49 AM [facility] LAB AST (SGOT) 20 10 - 42 unit/L LAB CHEMISTRY METHOD 08/15/2025 11:49 AM [facility] LAB ALT (SGPT) 26 10 - 60 unit/L LAB CHEMISTRY METHOD 08/15/2025 11:49 AM [facility] LAB Alkaline Phosphatase 161(H) 42 - 121 unit/L LAB CHEMISTRY METHOD 08/15/2025 11:49 AM [facility] LAB Total Protein 6.4 6.0 - 8.0 g/dL LAB CHEMISTRY METHOD 08/15/2025 11:49 AM [facility] LAB Albumin 3.1(L) 3.2 - 5.0 g/dL LAB CHEMISTRY METHOD 08/15/2025 11:49 AM [facility] LAB Total Bilirubin 0.3 0.0 - 1.4 mg/dL LAB CHEMISTRY METHOD 08/15/2025 11:49 AM [facility] LAB Blood Venous blood specimen / Unknown Venipuncture / Unknown 08/15/2025 7:51 AM EDT 08/15/2025 10:11 AM EDT us Gage Florez MD LAB BLOOD ORDERABLES Final Result [facility] [address] [place] [address], documented in this encounter Visit Diagnoses Diagnosis Type 2 diabetes mellitus without complications (CMS/HCC V24, CMS/HCC V28) documented in this encounter Care Teams Fishing Gear Mechanic Relationship Specialty Start Date End Date Ysabel Whyte MD [address] [place], [place] PCP - General Internal Medicine 02/20/22 documented as of this encounter
--- OUTSIDE RECORDS SUMMARY | 2025-09-02 14:11 | XMS_ITS | Encounter Summary ---
Author Organization [facility] Address [id number] [place] [phone] Care Team Providers Care Photographer Helper Name Role Phone Ysabel Whyte MD Primary Care Provider Encounter Details Date Type Department Care Team (Latest Contact Info) Description 01/18/2025 Lab Requisition [facility] - Main Lab [address] [facility] [place] [address] Manoj Max MD [address] [place] [address] Type 2 diabetes mellitus without complications (CMS/HCC [...] Associated Diagnosis Comments COMPLETE BLOOD COUNT Routine 01/19/2025 5:24 AM EDT Type 2 diabetes mellitus without complications (CMS/HCC) Major depressive disorder, single episode, unspecified Other cerebrovascular disease BASIC METABOLIC PANEL Routine 01/19/2025 5:24 AM EDT Type 2 diabetes mellitus without complications (CMS/HCC) Major depressive disorder, single episode, unspecified Other cerebrovascular disease documented in this encounter Results * (ABNORMAL) Basic metabolic panel (01/19/2025 5:24 AM EDT) Sodium 144 133 - 145 mmol/L LAB CHEMISTRY METHOD 01/19/2025 10:16 AM [facility] LAB Potassium 4.2 3.5 - 5.5 mmol/L LAB CHEMISTRY METHOD 01/19/2025 10:16 AM [facility] LAB Chloride 110 96 - 110 mmol/L LAB CHEMISTRY METHOD 01/19/2025 10:16 AM [facility] LAB CO2 23 21 - 32 mmol/L LAB CHEMISTRY METHOD 01/19/2025 10:16 AM [facility] LAB Anion Gap 11 3 - 11 LAB CHEMISTRY METHOD 01/19/2025 10:16 AM [facility] LAB Glucose 248(H) 70 - 100 mg/dL LAB CHEMISTRY METHOD 01/19/2025 10:16 AM [facility] LAB BUN 35(H) 5 - 25 mg/dL LAB CHEMISTRY METHOD 01/19/2025 10:16 AM [facility] LAB Creatinine 2.80(H) 0.50 - 1.10 mg/dL LAB CHEMISTRY METHOD 01/19/2025 10:16 AM [facility] LAB eGFR 18(L) >=60 mL/min/1. 73m2 LAB CHEMISTRY METHOD 01/19/2025 10:16 AM [facility] LAB Comment:Calculation based on the Chronic Kidney Disease Epidemiology Collaboration (CKD-EPI) equation refit without adjustment for race. BUN/Creatinine Ratio 12.5 LAB CHEMISTRY METHOD 01/19/2025 10:16 AM [facility] LAB Calcium 8.6 8.5 - 10.5 mg/dL LAB CHEMISTRY METHOD 01/19/2025 10:16 AM [facility] LAB Blood Venous blood specimen / Unknown Venipuncture / Unknown 01/19/2025 5:24 AM EDT 01/19/2025 9:37 AM EDT us Manoj Mxa MD LAB BLOOD ORDERABLES Final Resul t [facility] [address] [place] [address], * (ABNORMAL) Complete blood count (01/19/2025 5:24 AM EDT) [facility] Signature WBC 8.2 4.8 - 10.8 K/mcL LAB HEMETOLOGY METHOD 01/19/2025 9:56 AM EDT [facility] LAB RBC 3.60(L) 3.80 - 4.80 M/mcL LAB HEMETOLOGY METHOD 01/19/2025 9:56 AM EDT [facility] LAB Hemoglobin 11.0(L) 11.5 - 16.0 g/dL LAB HEMETOLOGY METHOD 01/19/2025 9:56 AM EDT [facility] LAB Hematocrit 33.4(L) 35.0 - 47.0 % LAB HEMETOLOGY METHOD 01/19/2025 9:56 AM EDT [facility] LAB MCV 92.8 79.0 - 98.0 FL LAB HEMETOLOGY METHOD 01/19/2025 9:56 AM EDT [facility] LAB MCH 30.6 27.0 - 32.0 pcg LAB [facility]EMETOLOGY [facility] M[facility]C 32.9 32.0 - 37.0 g/dL LAB HEMETOLOGY METHOD 01/19/2025 9:56 AM EDT [facility] LAB RDW 13.8 11.0 - 15.0 % LAB HEMETOLOGY METHOD 01/19/2025 9:56 AM EDT [facility] LAB Platelets 242 130 - 400 K/mcL LAB HEMETOLOGY METHOD 01/19/2025 9:56 AM EDT [facility] LAB MPV 11.2(H) 7.0 - 11.0 FL LAB HEMETOLOGY METHOD 01/19/2025 9:56 AM EDT [facility] LAB NRBC 0.0 <1.0 % LAB HEMETOLOGY METHOD 01/19/2025 9:56 AM EDT [facility] LAB NRBC Absolute 0.00 <0.10 K/mcL LAB HEMETOLOGY METHOD 01/19/2025 9:56 AM EDT [facility] LAB Blood Venous blood specimen / Unknown Venipuncture / Unknown 01/19/2025 5:24 AM EDT 01/19/2025 9:37 AM EDT us Manoj Max MD LAB BLOOD ORDERABLES Final Resul t [facility] [address] [place] [address], documented in this encounter Visit Diagnoses Diagnosis Type 2 diabetes mellitus without complications (CMS/HCC V24, CMS/HCC V28) Major depressive disorder, single episode, unspecified Other cerebrovascular disease documented in this encounter Care Teams Photographer Helper Relationship Specialty Start Date End Date Ysabel Whyte MD [address] [place], [place] PCP - General Internal Medicine 02/20/22 documented as of this encounter
--- OUTSIDE RECORDS SUMMARY | 2025-09-02 14:11 | XMS_ITS | Clinical Summary ---
Author Organization [address] Address [address] [place] [address] Phone Care Team Providers Care Project Scientist Name Role Phone Ysabel Whyte MD Primary Care Provider Encounters Date Type Department Care Team Description 08/21/2025 Lab Requisition [facility] [address] [place] [phone] Gage Florez MD Type 2 diabetes mellitus without complications ([facility] V24, [facility] V28) 08/14/2025 Lab Requisition [facility] [address] [place] [phone] Gage Florez MD Type 2 diabetes mellitus without complications ([facility] V24, [facility] V28) 08/06/2025 Lab Requisition [facility] [address] [place] [phone] Gage Florez MD Type 2 diabetes mellitus without complications ([facility] V24, [facility] V28) 08/03/2025 Lab Requisition [facility] [address] [place] [phone] Gage Florez MD Type 2 diabetes mellitus without complications ([facility] V24, [facility] V28) 07/29/2025 Lab Requisition [facility] [address] [place] [phone] Callie Tran MD Chronic diastolic (congestive) heart failure ([facility] V24, [facility] V28); Chronic kidney disease, stage 4 (severe) ([facility] V24, [facility] V28); Type 2 diabetes mellitus without complications ([facility] V24, [facility] V28); Gout, unspecified; Vitamin D deficiency, unspecified; Personal history of other diseases of the musculoskeletal system and connective tissue 07/22/2025 Lab Requisition [facility] [address] [place] [phone] Callie Tran MD Chronic diastolic (congestive) heart failure ([facility] V24, [facility] V28); Chronic kidney disease, stage 4 (severe) ([facility] V24, [facility] V28); Type 2 diabetes mellitus without complications ([facility] V24, [facility] V28); Gout, unspecified; Vitamin D deficiency, unspecified; Personal history of other diseases of the musculoskeletal system and connective tissue 07/15/2025 Lab Requisition [facility] [address] [place] [phone] Callie Tran MD Chronic diastolic (congestive) heart failure ([facility] V24, [facility] V28); Chronic kidney disease, stage 4 (severe) ([facility] V24, [facility] V28); Type 2 diabetes mellitus without complications ([facility] V24, [facility] V28); Gout, unspecified; Vitamin D deficiency, unspecified; Personal history of other diseases of the musculoskeletal system and connective tissue 07/12/2025 Lab Requisition [facility] [address] [place] [phone] Callie Tran MD Chronic diastolic (congestive) heart failure ([facility] V24, [facility] V28); Chronic kidney disease, stage 4 (severe) ([facility] V24, [facility] V28); Type 2 diabetes mellitus without complications ([facility] V24, [facility] V28); Personal history of other diseases of the musculoskeletal system and connective tissue; Gout, unspecified; Vitamin D deficiency, unspecified from Last 3 Months Social History Tobacco Use Types Packs/Day Years Used Date Smoking Tobacco: Never Assessed Comments Unknown Sex and Gender Information Value Date Recorded Sex Assigned at Not on file Legal Sex Female 1:54 AM EST Gender Identity Not on file Sexual Orientation Not on file Plan of Treatment Health Maintenance Due Date Last Done Comments Breast Cancer Screening 1955 Colorectal Cancer Screening: Colonoscopy 1955 Diabetes: Annual Foot Exam 02/09/1964 Diabetes: Annual Retina Eye Exam 02/09/1964 RSV Immunization Adult Patients (1 - Risk 50-74 years 1-dose series) 02/09/2004 Zoster Vaccines (2 of 3) 12/16/2017 10/21/2017 Cholesterol Screening (Lipid Panel) 10/13/2022 Falls Risk Assessment 10/13/2022 Hepatitis C Screening 10/13/2022 Medicare Annual Wellness Visit 10/13/2022 Osteoporosis Screening (Bone Density Screening) 10/13/2022 Social Influencers of Health Screening 10/13/2022 Depression Screening 11/10/2024 Diabetes: Annual Urine Albumin-Creatinine Ratio (uACR) 01/13/2025 COVID-19 Vaccine ( season) 2025 09/17/2021, 01/30/2021, 01/02/2021 Influenza Vaccine (#1) 2025 , 08/29/2022, 08/23/2021, Additional history exists Diabetes: Blood Sugar Control Test (HGBA1C) 01/09/2026 07/12/2025 Diabetes: Annual GFR (Glomerular Filtration Rate) 08/15/2026 08/15/2025, 08/08/2025, 08/03/2025, Additional history exists Hypertension/CHF/CAD Annual BMP Blood Test 08/15/2026 08/15/2025, 08/08/2025, 08/03/2025, Additional history exists DTaP,Tdap,and Td Vaccines (4 - Td or Tdap) 08/01/2031 08/01/2021, 12/07/2013, 03/09/2003 Pneumococcal Vaccine: 50+ Years Completed 10/22/2021, 10/19/2020, 10/23/2004 HIB Vaccines Aged Out No longer eligi ble based on patient's age to complete this topic HPV Vaccines Aged Out No longer eligi ble based on patient's age to complete this topic Hepatitis A Vaccines Aged Out No long er eligible based on patient's age to complete this topic Hepatitis B Vaccines Aged Out No long er eligible based on patient's age to complete this topic IPV Vaccines Aged Out No longer eligi ble based on patient's age to complete this topic MMR Vaccines Aged Out No longer eligi ble based on patient's age to complete this topic Meningococcal ACWY Vaccine Aged Out N o longer eligible based on patient's age to complete this topic Meningococcal B Vaccine Aged Out No l onger eligible based on patient's age to complete this topic RSV Immunization Patients Under 20 months Aged Out No longer eligible based on patient's age to complete this topic Varicella Vaccines Aged Out No longer eligible based on patient's age to complete this topic Procedures Procedure Name Priority Date/Time Associated Diagnosis Comments COMPLETE BLOOD COUNT Routine 08/15/2025 7:51 AM EDT Type 2 diabetes mellitus without complications (CMS/HCC V24, CMS/HCC V28) COMPREHENSIVE METABOLIC PANEL Routine 08/15/2025 7:51 AM EDT Type 2 diabetes mellitus without complications (CMS/HCC V24, CMS/HCC V28) COMPLETE BLOOD COUNT Routine 08/08/2025 7:55 AM EDT Type 2 diabetes mellitus without complications (CMS/HCC V24, CMS/HCC V28) COMPREHENSIVE METABOLIC PANEL Routine 08/08/2025 7:55 AM EDT Type 2 diabetes mellitus without complications (CMS/HCC V24, CMS/HCC V28) COMPREHENSIVE METABOLIC PANEL Routine 08/03/2025 7:18 AM EDT Type 2 diabetes mellitus without complications (CMS/HCC V24, CMS/HCC V28) COMPLETE BLOOD COUNT Routine 08/03/2025 7:18 AM EDT Type 2 diabetes mellitus without complications (CMS/HCC V24, CMS/HCC V28) BASIC METABOLIC PANEL Routine 07/25/2025 6:55 AM EDT Chronic diastolic (congestive) heart failure (CMS/HCC V24, CMS/HCC V28) Chronic kidney disease, stage 4 (severe) (CMS/HCC V24, CMS/HCC V28) Type 2 diabetes mellitus without complications (CMS/HCC V24, CMS/HCC V28) Gout, unspecified Vitamin D deficiency, unspecified Personal history of other diseases of the musculoskeletal system and connective tissue COMPLETE BLOOD COUNT Routine 07/25/2025 6:55 AM EDT Chronic diastolic (congestive) heart failure ([facility]/HCC V24, CMS/HCC V28) Chronic kidney disease, stage 4 (severe) (CMS/HCC V24, CMS/HCC V28) Type 2 diabetes mellitus without complications (CMS/HCC V24, CMS/HCC V28) Gout, unspecified Vitamin D deficiency, unspecified Personal history of other diseases of the musculoskeletal system and connective tissue BASIC METABOLIC PANEL Routine 07/18/2025 7:13 AM EDT Chronic diastolic (congestive) heart failure ([facility]/HCC V24, CMS/HCC V28) Chronic kidney disease, stage 4 (severe) (CMS/HCC V24, CMS/HCC V28) Type 2 diabetes mellitus without complications (CMS/HCC V24, CMS/HCC V28) Gout, unspecified Vitamin D deficiency, unspecified Personal history of other diseases of the musculoskeletal system and connective tissue COMPLETE BLOOD COUNT Routine 07/18/2025 7:13 AM EDT Chronic diastolic (congestive) heart failure ([facility]/HCC V24, [facility]/HCC V28) Chronic kidney disease, stage 4 (severe) (CMS/HCC V24, CMS/HCC V28) Type 2 diabetes mellitus without complications (CMS/HCC V24, CMS/HCC V28) Gout, unspecified Vitamin D deficiency, unspecified Personal history of other diseases of the musculoskeletal system and connective tissue HEMOGLOBIN A1C Routine 07/12/2025 8:05 AM EDT Chronic diastolic (congestive) heart failure ([facility]/HCC V24, [facility] V28) Chronic kidney disease, stage 4 (severe) ([facility]/HCC V24, CMS/HCC V28) Type 2 diabetes mellitus [...] Gout, unspecified Vitamin D deficiency, unspecified VITAMIN D 25 HYDROXY Routine 07/12/2025 8:05 [...] AM EDT Chronic diastolic (congestive) heart failure ([facility] V24, [facility] V28) Chronic kidney disease, stage 4 (severe) ([facility] V24, [facility] V28) Type 2 diabetes mellitus without complications ([facility] V24, [facility] V28) Personal history of other diseases of the musculoskeletal system and connective tissue Gout, unspecified Vitamin D deficiency, unspecified COMPLETE BLOOD COUNT Routine 07/12/2025 8:05 AM EDT Chronic diastolic (congestive) heart failure ([facility] V24, [facility] V28) Chronic kidney disease, stage 4 (severe) ([facility] V24, [facility] V28) Type 2 diabetes mellitus without complications ([facility] V24, [facility] V28) Personal history of other diseases of the musculoskeletal system and connective tissue Gout, unspecified Vitamin D deficiency, unspecified from Last 3 Months Results * (ABNORMAL) Complete blood count (08/15/2025 7:51 AM EDT) Only the most recent of6 resultswithin the time period is included. [facility] WBC 6.5 4.8 - 10.8 K/mcL LAB HEMETOLOGY METHOD 08/15/2025 11:20 AM [facility] LAB RBC 3.40(L) 3.80 - 4.80 M/mcL LAB HEMETOLOGY METHOD 08/15/2025 11:20 AM [facility] LAB Hemoglobin 10.5(L) 11.5 - 16.0 g/dL LAB HEMETOLOGY METHOD 08/15/2025 11:20 AM [facility] LAB Hematocrit 32.2(L) 35.0 - 47.0 % LAB HEMETOLOGY METHOD 08/15/2025 11:20 AM [facility] LAB MCV 93.9 79.0 - 98.0 FL LAB HEMETOLOGY METHOD 08/15/2025 11:20 AM EDT [facility] LAB MCH 30.6 27.0 - 32.0 pcg LAB HEMETOLOGY METHOD 08/15/2025 11:20 AM EDT [facility] LAB MCHC 32.6 32.0 - 37.0 g/dL LAB HEMETOLOGY METHOD 08/15/2025 11:20 AM EDT [facility] RDW 13.8 11.0 - 15.0 % LAB HEMETOLOGY METHOD 08/15/2025 11:20 AM EDT [facility] LAB Platelets 245 130 - 400 K/mcL LAB HEMETOLOGY METHOD 08/15/2025 11:20 AM EDT [facility] LAB MPV 11.0 7.0 - 11.0 FL LAB HEMETOLOGY METHOD 08/15/2025 11:20 AM EDT [facility] NRBC 0.0 <1.0 % LAB HEMETOLOGY METHOD 08/15/2025 11:20 AM EDT [facility] LAB NRBC Absolute 0.00 <0.10 K/mcL LAB HEMETOLOGY METHOD 08/15/2025 11:20 AM [facility] LAB Blood Venous blood specimen / Unknown Venipuncture / Unknown 08/15/2025 7:51 AM EDT 08/15/2025 10:10 AM EDT us Gage Flroez MD LAB BLOOD ORDERABLES Final Result [facility] [address] [place] [address], * (ABNORMAL) Comprehensive metabolic panel (08/15/2025 7:51 AM EDT) Only the most recent of4 resultswithin the time period is included. [facility] Sodium 144 133 - 145 mmol/L LAB CHEMISTRY METHOD 08/15/2025 11:49 AM [facility] LAB Potassium 4.1 3.5 - 5.5 mmol/L LAB CHEMISTRY METHOD 08/15/2025 11:49 AM [facility] LAB Chloride 109 96 - 110 mmol/L LAB CHEMISTRY METHOD 08/15/2025 11:49 AM [facility] LAB CO2 27 21 - 32 mmol/L LAB CHEMISTRY METHOD 08/15/2025 11:49 AM [facility] LAB Anion Gap 8 3 - 11 LAB CHEMISTRY METHOD 08/15/2025 11:49 AM [facility] LAB Glucose 236(H) 70 - 100 mg/dL LAB CHEMISTRY METHOD 08/15/2025 11:49 AM [facility] LAB BUN 37(H) 5 - 25 mg/dL LAB CHEMISTRY METHOD 08/15/2025 11:49 AM [facility] LAB Creatinine 2.46(H) 0.50 - 1.10 mg/dL LAB CHEMISTRY METHOD 08/15/2025 11:49 AM [facility] LAB eGFR 20(L) >=60 mL/min/1. 73m2 LAB CHEMISTRY METHOD 08/15/2025 11:49 AM [facility] LAB Comment:Calculation based on the Chronic Kidney Disease Epidemiology Collaboration (CKD-EPI) equation refit without adjustment for race. BUN/Creatinine Ratio 15.0 LAB CHEMISTRY METHOD 08/15/2025 11:49 AM [facility] LAB Calcium 9.0 8.5 - 10.5 mg/dL LAB CHEMISTRY METHOD 08/15/2025 11:49 AM [facility] LAB AST (SGOT) 20 10 - 42 unit/L LAB CHEMISTRY METHOD 08/15/2025 11:49 AM [facility] LAB ALT (SGPT) 26 10 - 60 unit/L LAB CHEMISTRY METHOD 08/15/2025 11:49 AM [facility] LAB Alkaline Phosphatase 161(H) 42 - 121 unit/L LAB CHEMISTRY METHOD 08/15/2025 11:49 AM EDT [facility] Total Protein 6.4 6.0 - 8.0 g/dL LAB CHEMISTRY METHOD 08/15/2025 11:49 AM [facility] LAB Albumin 3.1(L) 3.2 - 5.0 g/dL LAB CHEMISTRY METHOD 08/15/2025 11:49 AM EDT [facility] Total Bilirubin 0.3 0.0 - 1.4 mg/dL LAB CHEMISTRY METHOD 08/15/2025 11:49 AM [facility] LAB Blood Venous blood specimen / Unknown Venipuncture / Unknown 08/15/2025 7:51 AM EDT 08/15/2025 10:11 AM EDT Gage Florez MD LAB BLOOD ORDERABLES Final Result [facility] [address] [place] [address], [place] [phone] * (ABNORMAL) Basic metabolic panel (07/25/2025 6:55 AM EDT) Only the most recent of2 resultswithin the time period is included. Sodium 146(H) 133 - 145 mmol/L LAB CHEMISTRY METHOD 07/25/2025 10:59 AM [facility] LAB Potassium 4.0 3.5 - 5.5 mmol/L LAB CHEMISTRY METHOD 07/25/2025 10:59 AM [facility] LAB Chloride 115(H) 96 - 110 mmol/L LAB CHEMISTRY METHOD 07/25/2025 10:59 AM [facility] LAB CO2 23 21 - 32 mmol/L LAB CHEMISTRY METHOD 07/25/2025 10:59 AM [facility] LAB Anion Gap 8 3 - 11 LAB CHEMISTRY [facility] Glucose 172(H) 70 - 100 mg/dL LAB CHEMISTRY METHOD 07/25/2025 10:59 AM EDT [facility] BUN 30(H) 5 - 25 mg/dL LAB CHEMISTRY METHOD 07/25/2025 10:59 AM EDT [facility] Creatinine 2.48(H) 0.50 - 1.10 mg/dL LAB CHEMISTRY METHOD 07/25/2025 10:59 AM EDT [facility] LAB eGFR 20(L) >=60 mL/min/1. 73m2 LAB CHEMISTRY METHOD 07/25/2025 10:59 AM EDT [facility] LAB Comment:Calculation based on the Chronic Kidney Disease Epidemiology Collaboration (CKD-EPI) equation refit without adjustment for race. BUN/Creatinine Ratio 12.1 LAB CHEMISTRY METHOD 07/25/2025 10:59 AM EDT [facility] Calcium 8.4(L) 8.5 - 10.5 mg/dL LAB CHEMISTRY METHOD 07/25/2025 10:59 AM EDT [facility] Blood Venous blood specimen / Unknown Venipuncture / Unknown 07/25/2025 6:55 AM EDT 07/25/2025 10:06 AM EDT us Callie Tran MD LAB BLOOD ORDERABLES Fin al Result [facility] [address] [place] [address], * (ABNORMAL) Vitamin D 25 hydroxy (07/12/2025 8:05 AM EDT) Vit D, 25-Hydroxy 11.6(L) 30.0 - 80.0 ng/mL LAB CHEMISTRY METHOD 07/12/2025 4:45 PM EDT [facility] Blood Venous blood specimen / Unknown Venipuncture / Unknown 07/12/2025 8:05 AM EDT 07/12/2025 11:40 AM EDT Callie Tran MD LAB BLOOD ORDERABLES Fin al Result Performing Organization Address [facility]/ZIP Co de Phone Number [facility] [address] [place] [address], [place] [phone] * Thyroid stimulating hormone (07/12/2025 8:05 AM EDT) Pathologist [facility] TSH 2.58 0.40 - 4.00 mcIU/mL LAB CHEMISTRY METHOD 07/12/2025 4:45 PM EDT [facility] Blood Venous blood specimen / Unknown Venipuncture / Unknown 07/12/2025 8:05 AM EDT 07/12/2025 11:40 AM EDT Callie Tran MD LAB BLOOD ORDERABLES Fin al Result Performing Organization Address [facility] Co de Phone Number [facility] [address] [place] [address], [place] [phone] * Magnesium (07/12/2025 8:05 AM EDT) [facility] Magnesium 2.5 1.9 - 2.6 mg/dL LAB CHEMISTRY METHOD 07/12/2025 2:57 PM EDT [facility] Blood Venous blood specimen / Unknown Venipuncture / Unknown 07/12/2025 8:05 AM EDT 07/12/2025 11:40 AM EDT Callie Tran MD LAB BLOOD ORDERABLES Fin al Result Performing Organization Address City/[facility]/ZIP Co de Phone Number [facility] [address] [place] [address], [place] [phone] * (ABNORMAL) Hemoglobin A1c (07/12/2025 8:05 AM EDT) [facility] Hemoglobin A1C 8.3(H) <6.5 % LAB CHEMISTRY [...] ORDERABLES Fin al Result Performing Organization Address [facility] de Phone Number [facility] [address] [place] [address], [place] [phone] * (ABNORMAL) Folate (07/12/2025 8:05 AM EDT) Folate >20.0(H) 2.8 - 17.0 ng/ml LAB CHEMISTRY METHOD 07/12/2025 3:29 PM EDT [facility] Blood Venous blood specimen / Unknown Venipuncture / Unknown 07/12/2025 8:05 AM EDT 07/12/2025 11:40 AM EDT Callie Tran MD LAB BLOOD ORDERABLES Fin al Result Performing Organization Address [facility] de Phone Number [facility] [address] [place] [address], [place] [phone] * Vitamin B12 (07/12/2025 8:05 AM EDT) Vitamin B-12 325 250 - 900 pcg/mL LAB CHEMISTRY METHOD 07/12/2025 3:29 PM EDT [facility] Blood Venous blood specimen / Unknown Venipuncture / Unknown 07/12/2025 8:05 AM EDT 07/12/2025 11:40 AM EDT Callie Tran MD LAB BLOOD ORDERABLES Fin al Result [facility] LAB [address] [place] [address], from Last 3 Months Insurance MEDICAID - [place] [facility] Member Subscriber Plan / Payer (Ef fective 2025-Present) Name:Antelmo Parrishy Relation to Subscriber:Self Name:ShivaniHarsh rees Payer ID:[id number] Group ID:Not on file Type:Not on file Address: [address] [place] [id number] [facility] Care Teams Project Scientist Relationship Specialty Start Date End Date Ysabel Whyte MD [address] [place], [place] PCP - General Internal Medicine 02/20/22
--- OUTSIDE RECORDS SUMMARY | 2025-09-02 14:11 | XMS_ITS | Encounter Summary ---
Author Organization [facility] Address [address] [place] [address] Care Team Providers Care Movie Theater Manager Name Role Phone Ysabel Whyte MD Primary Care Provider Encounter Details Date Type Department Care Team (Late st Contact Info) Description 08/03/2025 Lab Requisition [facility] - Main Lab 299 [facility] [place] [address] Gage Florez MD [address] [place] [address] Type 2 diabetes mellitus without complications (CMS/HCC [...] Associated Diagnosis Comments COMPLETE BLOOD COUNT Routine 08/03/2025 7:18 AM EDT Type 2 diabetes mellitus without complications (CMS/HCC V24, CMS/HCC V28) COMPREHENSIVE METABOLIC PANEL Routine 08/03/2025 7:18 AM EDT Type 2 diabetes mellitus without complications (CMS/HCC V24, CMS/HCC V28) documented in this encounter Results * (ABNORMAL) Comprehensive metabolic panel (08/03/2025 7:18 AM EDT) Sodium 145 133 - 145 mmol/L LAB CHEMISTRY METHOD 08/03/2025 11:51 AM EDT [facility] Potassium 4.1 3.5 - 5.5 mmol/L LAB CHEMISTRY METHOD 08/03/2025 11:51 AM [facility] Chloride 111(H) 96 - 110 mmol/L LAB CHEMISTRY METHOD 08/03/2025 11:51 AM [facility] CO2 25 21 - 32 mmol/L LAB CHEMISTRY METHOD 08/03/2025 11:51 AM [facility] Anion Gap 9 3 - 11 LAB CHEMISTRY METHOD 08/03/2025 11:51 AM [facility] Glucose 196(H) 70 - 100 mg/dL LAB CHEMISTRY METHOD 08/03/2025 11:51 AM [facility] BUN 39(H) 5 - 25 mg/dL LAB CHEMISTRY METHOD 08/03/2025 11:51 AM [facility] Creatinine 2.21(H) 0.50 - 1.10 mg/dL LAB CHEMISTRY METHOD 08/03/2025 11:51 AM [facility] eGFR 23(L) >=60 mL/min/1. 73m2 LAB CHEMISTRY METHOD 08/03/2025 11:51 AM [facility] LAB Comment:Calculation based on the Chronic Kidney Disease Epidemiology Collaboration (CKD-EPI) equation refit without adjustment for race. BUN/Creatinine Ratio 17.6 LAB CHEMISTRY METHOD 08/03/2025 11:51 AM [facility] Calcium 8.9 8.5 - 10.5 mg/dL LAB CHEMISTRY METHOD 08/03/2025 11:51 AM [facility] AST (SGOT) 23 10 - 42 unit/L LAB CHEMISTRY METHOD 08/03/2025 11:51 AM [facility] ALT (SGPT) 24 10 - 60 unit/L LAB CHEMISTRY METHOD 08/03/2025 11:51 AM [facility] Alkaline Phosphatase 159(H) 42 - 121 unit/L LAB CHEMISTRY METHOD 08/03/2025 11:51 AM EDT [facility] Total Protein 6.2 6.0 - 8.0 g/dL LAB CHEMISTRY METHOD 08/03/2025 11:51 AM T [facility] Albumin 2.9(L) 3.2 - 5.0 g/dL LAB CHEMISTRY METHOD 08/03/2025 11:51 AM [facility] Total Bilirubin 0.4 0.0 - 1.4 mg/dL LAB CHEMISTRY METHOD 08/03/2025 11:51 AM EDT [facility] Blood Venous blood specimen / Unknown Venipuncture / Unknown 08/03/2025 7:18 AM EDT 08/03/2025 10:11 AM EDT us Gage Florez MD LAB BLOOD ORDERABLES Final Result [facility] [address] [place] [address], * (ABNORMAL) Complete blood count (08/03/2025 7:18 AM EDT) WBC 7.9 4.8 - 10.8 K/mcL LAB HEMETOLOGY METHOD 08/03/2025 10:51 AM [facility] RBC 3.40(L) 3.80 - 4.80 M/mcL LAB HEMETOLOGY METHOD 08/03/2025 10:51 AM T [facility] Hemoglobin 10.2(L) 11.5 - 16.0 g/dL LAB HEMETOLOGY METHOD 08/03/2025 10:51 AM [facility] Hematocrit 32.2(L) 35.0 - 47.0 % LAB HEMETOLOGY METHOD 08/03/2025 10:51 AM [facility] MCV 94.7 79.0 - 98.0 FL LAB HEMETOLOGY METHOD 08/03/2025 10:51 AM EDT [facility] MCH 30.0 27.0 - 32.0 pcg LAB HEMETOLOGY METHOD 08/03/2025 10:51 AM [facility] MCHC 31.7(L) 32.0 - 37.0 g/dL LAB HEMETOLOGY METHOD 08/03/2025 10:51 AM [facility] RDW 14.3 11.0 - 15.0 % LAB HEMETOLOGY METHOD 08/03/2025 10:51 AM [facility] Platelets 261 130 - 400 K/mcL LAB HEMETOLOGY METHOD 08/03/2025 10:51 AM [facility] MPV 10.8 7.0 - 11.0 FL LAB HEMETOLOGY METHOD 08/03/2025 10:51 AM [facility] NRBC 0.0 <1.0 % LAB HEMETOLOGY METHOD 08/03/2025 10:51 AM [facility] NRBC Absolute 0.00 <0.10 K/mcL LAB HEMETOLOGY METHOD 08/03/2025 10:51 AM [facility] Blood Venous blood specimen / Unknown Venipuncture / Unknown 08/03/2025 7:18 AM EDT 08/03/2025 10:11 AM EDT us Gage Florez MD LAB BLOOD ORDERABLES Final Result [facility] [address] [place] [address], [place] [phone] documented in this encounter Visit Diagnoses Diagnosis Type 2 diabetes mellitus without complications (CMS/HCC V24, CMS/HCC V28) documented in this encounter Care Teams Movie Theater Manager Relationship Specialty Start Date End Date Ysabel Whyte MD [address] [place] [address] PCP - General Internal Medicine 02/20/22 documented as of this encounter
--- OUTSIDE RECORDS SUMMARY | 2025-09-02 14:11 | XMS_ITS | Patient Health Record ---
Author Organization [facility] Address [address] [place] [address] Care Team Providers Care Mold Release Worker Name Role Phone Isabell BOOKER, Ysabel Primary [...] MG 1 capsule Orally Onc e a day; Duration: 30 day(s) 08/13/2012 Active Ecotrin 325mg Active [...] W/U Status Risk Notes Problem Esophageal reflux (412884738) Esophageal reflux (530.81) Active confirmed Plan Of Treatment Pending Test Test Name Order Date XR GI SERIES 08/13/2012 Insurance Providers Payer Name Payer Address Payer Phone Subscriber Number Group Number Insured Name Patient Relationship to Insured Coverage Start Date Coverage End Date MEDICARE OF [place] [address] [place] [id number] HARSH HAJI Self - patient is the insured MEDICAID OF [employer] [address] [place] [address] [id number] HARSH HAJI Self - patient is the insured Medical (General) History Medical History History ICD Code Denies NC,Lung disease kidney failer stroke diabetes hypertension cervical cancer skin cancer Surgical History Surgery Date(Month/Year) hysterectomy 1989 knee replacement 2009 back surgery 2010 carpal tunnel
--- OUTSIDE RECORDS SUMMARY | 2025-09-02 14:11 | XMS_ITS | Encounter Summary ---
Author Organization [facility] Address [address] [place] [address] Care Team Providers Care Undercutter Operator Name Role Phone Ysabel Whyte MD Primary Care Provider [phone] Encounter Details Date Type Department Care Team (Late st Contact Info) Description 07/29/2025 Lab Requisition [facility] - Main Lab 299 [facility] [place] [address] Callie Tran MD [address] [phone] Chronic diastolic (congestive) heart failure (CMS/HCC V24, [...] on file documented as of this encounter Visit Diagnoses Diagnosis Chronic diastolic (congestive) heart failure (CMS/HCC V24, CMS/HCC V28) Chronic kidney disease, stage 4 (severe) (CMS/HCC V24, CMS/HCC V28) Type 2 diabetes mellitus without complications (CMS/HCC V24, CMS/HCC V28) Gout, unspecified Vitamin D deficiency, unspecified Personal history of other diseases of the musculoskeletal system and connective tissue documented in this encounter Care Teams Undercutter Operator Relationship Specialty Start Date End Date Ysabel Whyte MD [address] [place] PCP - General Internal Medicine 02/20/22 documented as of this encounter
--- OUTSIDE RECORDS SUMMARY | 2025-09-02 14:11 | XMS_ITS | Encounter Summary ---
Author Organization [facility] Address [address] [place] [address] Care Team Providers Care Shut Off Worker Name Role Phone Ysabel Whyte MD Primary Care Provider + [phone] Encounter Details Date Type Department Care Team (Late st Contact Info) Description 07/22/2025 Lab Requisition [facility] - Main Lab 299 [facility] [place] [address] Callie Tran MD [address] [phone] Chronic diastolic (congestive) heart failure (CMS/HCC V24, [...] Associated Diagnosis Comments COMPLETE BLOOD COUNT Routine 07/25/2025 6:55 AM EDT Chronic diastolic (congestive) heart failure (CMS/HCC V24, CMS/HCC V28) Chronic kidney disease, stage 4 (severe) (CMS/HCC V24, CMS/HCC V28) Type 2 diabetes mellitus without complications (CMS/HCC V24, CMS/HCC V28) Gout, unspecified Vitamin D deficiency, unspecified Personal history of other diseases of the musculoskeletal system and connective tissue BASIC METABOLIC PANEL Routine 07/25/2025 6:55 AM EDT Chronic diastolic (congestive) heart failure ([facility] V24, [facility] V28) Chronic kidney disease, stage 4 (severe) ([facility] V24, [facility] V28) Type 2 diabetes mellitus without complications ([facility] V24, [facility] V28) Gout, unspecified Vitamin D deficiency, unspecified Personal history of other diseases of the musculoskeletal system and connective tissue documented in this encounter Results * (ABNORMAL) Basic metabolic panel (07/25/2025 6:55 AM EDT) Sodium 146(H) 133 - 145 mmol/L LAB CHEMISTRY METHOD 07/25/2025 10:59 AM [facility] Potassium 4.0 3.5 - 5.5 mmol/L LAB CHEMISTRY METHOD 07/25/2025 10:59 AM [facility] Chloride 115(H) 96 - 110 mmol/L LAB CHEMISTRY METHOD 07/25/2025 10:59 AM [facility] CO2 23 21 - 32 mmol/L LAB CHEMISTRY METHOD 07/25/2025 10:59 AM [facility] Anion Gap 8 3 - 11 LAB CHEMISTRY METHOD 07/25/2025 10:59 AM [facility] Glucose 172(H) 70 - 100 mg/dL LAB CHEMISTRY METHOD 07/25/2025 10:59 AM [facility] BUN 30(H) 5 - 25 mg/dL LAB CHEMISTRY METHOD 07/25/2025 10:59 AM [facility] Creatinine 2.48(H) 0.50 - 1.10 mg/dL LAB CHEMISTRY METHOD 07/25/2025 10:59 AM [facility] eGFR 20(L) >=60 mL/min/1. 73m2 LAB CHEMISTRY METHOD 07/25/2025 10:59 AM [facility] Comment:Calculation based on the Chronic Kidney Disease Epidemiology Collaboration (CKD-EPI) equation refit without adjustment for race. BUN/Creatinine Ratio 12.1 LAB CHEMISTRY METHOD 07/25/2025 10:59 AM EDT [facility] Calcium 8.4(L) 8.5 - 10.5 mg/dL LAB CHEMISTRY METHOD 07/25/2025 10:59 AM EDT [facility] Blood Venous blood specimen / Unknown Venipuncture / Unknown 07/25/2025 6:55 AM EDT 07/25/2025 10:06 AM EDT us Callie Tran MD LAB BLOOD ORDERABLES Fin al Result [facility] [address] [place] [address], * (ABNORMAL) Complete blood count (07/25/2025 6:55 AM EDT) WBC 6.7 4.8 - 10.8 K/mcL LAB HEMETOLOGY METHOD 07/25/2025 10:22 AM [facility] RBC 3.10(L) 3.80 - 4.80 M/mcL LAB HEMETOLOGY METHOD 07/25/2025 10:22 AM [facility] Hemoglobin 9.4(L) 11.5 - 16.0 g/dL LAB HEMETOLOGY METHOD 07/25/2025 10:22 AM [facility] Hematocrit 28.9(L) 35.0 - 47.0 % LAB HEMETOLOGY METHOD 07/25/2025 10:22 AM [facility] MCV 93.8 79.0 - 98.0 FL LAB HEMETOLOGY METHOD 07/25/2025 10:22 AM [facility] MCH 30.5 27.0 - 32.0 pcg LAB HEMETOLOGY METHOD 07/25/2025 10:22 AM EDT [facility] MCHC 32.5 32.0 - 37.0 g/dL LAB HEMETOLOGY METHOD 07/25/2025 10:22 AM EDT [facility] RDW 14.5 11.0 - 15.0 % LAB HEMETOLOGY METHOD 07/25/2025 10:22 AM EDT [facility] Platelets 205 130 - 400 K/mcL LAB HEMETOLOGY METHOD 07/25/2025 10:22 AM EDT [facility] MPV 10.9 7.0 - 11.0 FL LAB HEMETOLOGY METHOD 07/25/2025 10:22 AM EDT [facility] NRBC 0.0 <1.0 % LAB HEMETOLOGY METHOD 07/25/2025 10:22 AM EDT [facility] NRBC Absolute 0.00 <0.10 K/mcL LAB HEMETOLOGY METHOD 07/25/2025 10:22 AM EDT [facility] Blood Venous blood specimen / Unknown Venipuncture / Unknown 07/25/2025 6:55 AM EDT 07/25/2025 10:06 AM EDT us Callie Tran MD LAB BLOOD ORDERABLES Fin al Result [facility] [address] [place] [address], documented in this encounter Visit Diagnoses Diagnosis Chronic diastolic (congestive) heart failure (CMS/HCC V24, [facility]/HCC V28) Chronic kidney disease, stage 4 (severe) (CMS/HCC V24, [facility] V28) Type 2 diabetes mellitus without complications ([facility]/HCC V24, [facility] V28) Gout, unspecified Vitamin D deficiency, unspecified Personal history of other diseases of the musculoskeletal system and connective tissue documented in this encounter Care Teams Shut Off Worker Relationship Specialty Start Date End Date Ysabel Whyte MD [address] [place] PCP - General Internal Medicine 02/20/22 documented as of this encounter
--- OUTSIDE RECORDS SUMMARY | 2025-09-02 14:11 | XMS_ITS | Clinical Summary ---
Author Organization [facility] Address [address] [place] [phone] Phone Care Team Providers Care Water Rights Specialist Name Role Phone Ysabel Whyte MD Primary [...] COLONOSCOPY 1999 RSV VACCINE (1 - Risk 50-74 years 1-dose series) 02/09/2004 ZOSTER VACCINES (2 of 3) 12/16/2017 10/21/2017 OSTEOPOROSIS SCREENING INITIAL (ONE-TIME) 2019 INFLUENZA VACCINE (#1) 2025 , 08/23/2021, 08/30/2020, Additional history exists COVID-19 VACCINE (2024- season) 2025 10/23/2022, 09/17/2021, 01/30/2021, Additional history exists Adult [...] file Insurance MEDICARE PART A & B [facility] MEDICARE REPLACEMENT MEDICARE PART A & B MEDICARE REPLACEMENT MEDICARE PART A & B MEDICARE REPLACEMENT Member Subscriber Plan / Payer (Ef fective 2019-Present) Name:Keely Parrish Relation to Subscriber:Self Name:Keely Parrish Payer ID:[id number] (NAIC) Group ID:[id number] Type:Medicare [address] [facility] MEDICARE PART A & B MEDICARE REPLACEMENT MEDICARE PART A & B [address] [place], [place] [address] MEDICARE REPLACEMENT MEDICARE PART A & B [facility] MEDICARE REPLACEMENT [place] [id number] Care Teams Water Rights Specialist Relationship Specialty Start Date End Date Ysabel Whyte MD [address] [place] [address] PCP - General Internal Medicine 11/14/22 Additional Source Comments The information contained in this document represents components of the legal health record. It is not the complete legal health record.[facility]
--- OUTSIDE RECORDS SUMMARY | 2025-09-02 14:11 | XMS_ITS | Encounter Summary ---
Author Organization [facility] Address [address] [place] [phone] Care Team Providers Care Flooring Installer Name Role Phone Ysabel Whyte MD Primary Care Provider Encounter Details Date Type Department Care Team (Latest Contact Info) Description 02/01/2025 Lab Requisition [facility] - Main Lab 299 [facility] [place] [address] Manoj Max MD [address] [place] [address] Type 2 diabetes mellitus without complications (CMS/HCC [...] as of this encounter Visit Diagnoses Diagnosis Type 2 diabetes mellitus without complications (CMS/HCC V24, CMS/HCC V28) Major depressive disorder, single episode, unspecified Other cerebrovascular disease documented in this encounter Care Teams Flooring Installer Relationship Specialty Start Date End Date Ysabel Whyte MD [address] [place], [place] PCP - General Internal Medicine 02/20/22 documented as of this encounter
--- OUTSIDE RECORDS SUMMARY | 2025-09-02 14:11 | XMS_ITS | Encounter Summary ---
Author Organization [facility] Address [address] [place] [address] Care Team Providers Care Electrical Manufacturing Engineer Name Role Phone Ysabel Whyte MD Primary Care Provider Encounter Details Date Type Department Care Team (Latest Contact Info) Description 01/26/[address] [facility] - Main Lab 299 [facility] [place] [address] Manoj Max MD [address] [place] [address] Type 2 diabetes mellitus without complications (CMS/HCC [...] mmol/L LAB CHEMISTRY METHOD 01/26/2025 10:59 AM [facility] Potassium 4.2 3.5 - 5.5 mmol/L LAB CHEMISTRY METHOD 01/26/2025 10:59 AM [facility] Chloride 110 96 - 110 mmol/L LAB CHEMISTRY METHOD 01/26/2025 10:59 AM [facility] CO2 26 21 - 32 mmol/L LAB CHEMISTRY METHOD 01/26/2025 10:59 AM [facility] Anion Gap 8 3 - 11 LAB CHEMISTRY METHOD 01/26/2025 10:59 AM [facility] Glucose 85 70 - 100 mg/dL LAB CHEMISTRY METHOD 01/26/2025 10:59 AM [facility] BUN 35(H) 5 - 25 mg/dL LAB CHEMISTRY METHOD 01/26/2025 10:59 AM [facility] Creatinine 2.29(H) 0.50 - 1.10 mg/dL LAB CHEMISTRY METHOD 01/26/2025 10:59 AM [facility] eGFR 22(L) >=60 mL/min/1. 73m2 LAB CHEMISTRY METHOD 01/26/2025 10:59 AM [facility] Comment:Calculation based on the Chronic Kidney Disease Epidemiology Collaboration (CKD-EPI) equation refit without adjustment for race. BUN/Creatinine Ratio 15.3 LAB CHEMISTRY METHOD 01/26/2025 10:59 AM [facility] Calcium 8.9 8.5 - 10.5 mg/dL LAB CHEMISTRY METHOD 01/26/2025 10:59 AM [facility] Blood Venous blood specimen / Unknown Venipuncture / Unknown 01/26/2025 4:55 AM EDT 01/26/2025 9:55 AM EDT us Manoj Max MD LAB BLOOD ORDERABLES Final Resul t [facility] [address] [place] [address], * Complete blood count (01/26/2025 4:55 AM EDT) [facility] Signature WBC 8.0 4.8 - 10.8 K/mcL LAB HEMETOLOGY METHOD 01/26/2025 10:10 AM EDT [facility] RBC 3.80 3.80 - 4.80 M/mcL LAB HEMETOLOGY METHOD 01/26/2025 10:10 AM EDT [facility] Hemoglobin 11.7 11.5 - 16.0 g/dL LAB HEMETOLOGY METHOD 01/26/2025 10:10 AM EDT [facility] Hematocrit 36.3 35.0 - 47.0 % LAB HEMETOLOGY METHOD 01/26/2025 10:10 AM EDT [facility] MCV 94.5 79.0 - 98.0 FL LAB HEMETOLOGY METHOD 01/26/2025 10:10 AM EDT [facility] MCH 30.5 27.0 - 32.0 pcg LAB HEMETOLOGY METHOD 01/26/2025 10:10 AM EDT [facility] MCHC 32.2 32.0 - 37.0 g/dL LAB HEMETOLOGY METHOD 01/26/2025 10:10 AM EDT [facility] RDW 14.1 11.0 - 15.0 % LAB HEMETOLOGY METHOD 01/26/2025 10:10 AM EDT [facility] Platelets 227 130 - 400 K/mcL LAB HEMETOLOGY METHOD 01/26/2025 10:10 AM EDT [facility] MPV 11.0 7.0 - 11.0 FL LAB HEMETOLOGY METHOD 01/26/2025 10:10 AM EDT [facility] NRBC 0.0 <1.0 % LAB HEMETOLOGY METHOD 01/26/2025 10:10 AM EDT [facility] NRBC Absolute 0.00 <0.10 K/mcL LAB HEMETOLOGY METHOD 01/26/2025 10:10 AM EDT [facility] Blood Venous blood specimen / Unknown Venipuncture / Unknown 01/26/2025 4:55 AM EDT 01/26/2025 9:55 AM EDT us Manoj Max MD LAB BLOOD ORDERABLES Final Resul t [facility] [address] [place] [address], documented in this encounter Visit Diagnoses Diagnosis Type 2 diabetes mellitus without complications (CMS/HCC V24, CMS/HCC V28) Major depressive disorder, single episode, unspecified Other cerebrovascular disease documented in this encounter Care Teams Electrical Manufacturing Engineer Relationship Specialty Start Date End Date Ysabel Whyte MD [address] [place] [address] PCP - General Internal Medicine 02/20/22 documented as of this encounter
--- OUTSIDE RECORDS SUMMARY | 2025-09-02 14:12 | XMS_ITS | Encounter Summary ---
Author Organization [facility] Address [address] [place] [phone] Care Team Providers Care Product Development Director Name Role Phone Ysabel Whyte MD Primary Care Provider Encounter Details Date Type Department Care Team (Late st Contact Info) Description 08/21/[address] [facility] - Main Lab 299 [facility] [employer] [place] [address] Gage Florez MD [address] [place] [address] Type 2 diabetes mellitus without complications (CMS/HCC [...] V28) documented in this encounter Care Teams Product Development Director Relationship Specialty Start Date End Date Ysabel Whyte MD [address] [place] [address] PCP - General Internal Medicine 02/20/22 documented as of this encounter
--- OUTSIDE RECORDS SUMMARY | 2025-09-02 14:12 | XMS_ITS | Patient Health Record ---
[facility] Address [address] [place] [address] Care Team Providers Care Logging Truck Driver Name Role Phone Ysabel Whyte Primary Care Provider [place] Tish Thakur Unavailable [phone] Allergies No Known Allergies Results Component Value Reference Range Notes HEMOGLOBIN A1C (GLYCOHEMOGLO BIN) Reviewed date:04/06/2025 01:24:47 PM Interpretation: Performing Lab: Notes/Report: HEMOGLOBIN A1C % (HH) 6.8 Reason For Referral No Information Medications Medication SIG (Take, Route, Frequency, Duration) Notes Start Date End Date Status oxyBUTYnin Chloride ER 10 MG 1 tablet Orally Once a day; Duration: 30 day(s) Active Furosemide 40 MG 1 tablet Orally Once a day; Duration: 30 day(s) Active Aspirin 81 MG 1 tablet Orally Once a day; Duration: 30 day(s) Active DULoxetine HCl 20 MG 1 capsule Orally Tw ice a day; Duration: 30 day(s) Active Gabapentin 100 MG 2 Orally three times daily Active Compression Stockings 20-30mm Hg 1 pair wear daily; Duration: 30 days Active Ezetimibe 10 MG 1 tablet Orally Once a day; Duration: 30 day(s) Active Extra Depth Orthopedic Shoes (1 Pair) with Customized Heat Molded Multidensity Innersoles (3 Pair) as directed Dx: NIDDM/Polyneuropathy (E11.42), Hammertoe Foot Deformity (M20.41,M20.42), Preulcerative Skin Lesion(s) (L85.1 Active Allopurinol 300 MG 1 tablet Orally Once a day; Duration: 30 day(s) Active Jardiance 25 MG 1 tablet Orally Once a day; Duration: 30 day(s) Active Lisinopril 20 MG 1 tablet Orally Once a day; Duration: 30 day(s) Active Potassium Chloride 10 MEQ 1 capsule with food Orally Twice a day; Duration: 30 day(s) Active Atorvastatin Calcium 80 MG 1 tablet Oral ly Once a day; Duration: 30 day(s) Active Immunizations Vaccine Route Administration Date Status Comme nts Influenza Unknown 08/25/2023 Administered Influenza Unknown 01/25/2025 Administered Social History Tobacco Use: Social History Observation Description Date Details (start date - stop date) Never Smoker NA - NA Tobacco use other than smoking: Question Answer Notes Are you an other tobacco user? No Tobacco Control (Standard) Question Answer Notes Tobacco use: Nonsmoker Additional Findings: Tobacco non-user Current no nsmoker AUDIT-C (Standard) Question Answer Notes Did you have a drink containing alcohol in the p ast year? No Points 0 Interpretation Negative Problems Problem Type SNOMED Code ICD Code Onset Dates Problem Status W/U Status Risk Notes Problem Polyneuropathy due to type 2 diabetes mellitus (453347625) Type 2 diabetes mellitus with diabetic polyneuropathy (E11.42) Active confirmed Vital Signs Blood pressure diastolic 70 mm Hg 07/06/2025 Height 5ft 6in in 07/06/2025 Blood pressure systolic 128 mm Hg 07/06/2025 Weight 190 lbs 07/06/2025 BMI 30.66 kg/m2 07/06/2025 Procedures Procedure Date Ordered Date Performed Result Body Sit e 01464-HTIPBKV NAIL, 6 OR MORE 10/06/2024 N/A 37213-JRIY SKIN LESIONS, OVER 4 10/06/2024 N/A 77306-OZLQSSY NAIL, 6 OR MORE 04/06/2025 N/A 47638-ECIK SKIN LESIONS, OVER 4 04/06/2025 N/A 88866- Removal of Foreign Body, Subcut 04/06/2025 N/A 54642-EGFQYPN NAIL, 6 OR MORE 07/06/2025 N/A 53506 I&D ABSCESS- SIMPLE,SINGLE 07/06/2025 N/A 31591-WGCD SKIN LESIONS, OVER 4 07/06/2025 N/A Encounters Encounter Location Date Provider Diagnosis [facility] [place] [address] 10/06/2024 Tish Black Type 2 diabetes umang itus with diabetic polyneuropathy E11.42 ; Tinea unguium B35.1 and Edema, lower extremity R60.0 [facility] [address] 04/06/2025 Tish Black Type 2 diabetes umang itus with diabetic polyneuropathy E11.42 ; Other hammer toe(s) (acquired), right foot M20.41 ; Tinea unguium B35.1 ; Edema, lower extremity R60.0 ; Puncture wound with foreign body, left foot, initial encounter S91.342A and Other hammer toe(s) (acquired), left foot M20.[address] [address] 07/06/2025 Tish Thakur Type 2 diabetes umang itus with diabetic polyneuropathy E11.42 ; Tinea unguium B35.1 and Abscess of toe, right L02.611 Assessments Encounter Date Diagnosis (ICD Code) Assessment Notes Treatment Notes Treatment Clinical Notes Section Notes 10/06/2024 Tinea unguium (ICD-10 - B35.1) 10/06/2024 Type 2 diabetes mellitus with diabetic polyneuropathy (ICD-10 - E11.42) 04/06/2025 Other hammer toe(s) (acquired), right foot (ICD-10 - M20.41) Patient Educated with: DIABETIC FOOT CARE INSTRUCTIONS. pdf (DIABETIC FOOT CARE INSTRUCTIONS. pdf) 04/06/2025 Type 2 diabetes mellitus with diabetic polyneuropathy (ICD-10 - E11.42) 07/06/2025 Type 2 diabetes mellitus with diabetic polyneuropathy (ICD-10 - E11.42) 07/06/2025 Tinea unguium (ICD-10 - B35.1) 04/06/2025 Tinea unguium (ICD-10 - B35.1) 10/06/2024 Edema, lower extremity (ICD-10 - R60.0) 04/06/2025 Edema, lower extremity (ICD-10 - R60.0) 07/06/2025 Abscess of toe, right (ICD-10 - L02.611) Patient Educated with: WOUND CARE INSTRUCTIONS. pdf (WOUND CARE INSTRUCTIONS. pdf) 04/06/2025 Puncture wound with foreign body, left foot, initial encounter (ICD-10 - S91.342A) 04/06/2025 Other hammer toe(s) (acquired), left foot (ICD-10 - M20.42) 10/06/2024 Other Plan Of Treatment Pending Test Test Name Order Date 07347-BIYEMLY NAIL, 6 OR MORE 12/20/2022 19356-GGGMBWW NAIL, 6 OR MORE 03/04/2023 42765-ABKGGAB NAIL, 6 OR MORE 05/20/2023 53033-QNGDGQN NAIL, 6 OR MORE 10/22/2023 40940-AXUCWES NAIL, 6 OR MORE 02/13/2024 82111-ZRWVRRU NAIL, 6 OR MORE 05/28/2024 93647-CTPDYNR NAIL, 6 OR MORE 10/06/2024 37004-ZYYDXNP NAIL, 6 OR MORE 04/06/2025 02084-WGIYDFM NAIL, 6 OR MORE 07/06/2025 01490 I&D ABSCESS- SIMPLE,SINGLE 025 20057-KMDU SKIN LESIONS, OVER 4 07/06/20 25 92027-MGII SKIN LESIONS, OVER 4 04/06/20 25 17763-ASEC SKIN LESIONS, OVER 4 10/06/20 24 87221-DJOW SKIN LESIONS, OVER 4 05/28/20 24 16719-FFNK SKIN LESIONS, OVER 4 02/13/20 24 07182-DVQJ SKIN LESIONS, OVER 4 10/22/20 23 26033-GCEV SKIN LESIONS, OVER 4 05/20/20 23 43327-JHWX SKIN LESIONS, OVER 4 03/04/20 23 05764-WYFR SKIN LESIONS, 2 TO 4 12/20/19 23 41252- Removal of Foreign Body, Subcut 0 04/06/2025 Next Appt Details Provider Name:Tish Thakur , 10/12/2025 02:15:00 PM, [address] [facility], [place], [address], Insurance Providers Payer Name Payer Address Payer Phone Subscriber Number Group Number Insured Name Patient Relationship to Insured Coverage Start Date Coverage End Date [facility] [employer] Claims [address] [place] [id number] Keely Parrish Self - patient is the insured Medical (General) History Medical History History ICD Code Arthritis Back,Hip,and Knee pain Cancer Cataracts Depression type II diabetes Epilepsy Gout Measles Chicken pox Joint implants/screws Headaches/Migraines High blood pressure Kidney disease Numbness Paralysis Stroke Hallux rigidus of left foot M20.22 Hallux rigidus of right foot M20.21 Other hammer toe(s) (acquired), right fo ot M20.41 Other hammer toe(s) (acquired), left travis t M20.42 Surgical History Surgery Date(Month/Year) right knee replacement 1992 back surgery 1994 hip surgery 2001 Hospitalization History Reason Date(Month/Year) Wing fractured wrist 03/08/24
== END 2025-09-02 12:55 | disposition home or self-care (01) ==
LOC: HO.PMC 11:55
PROVIDERS: PCP Internal Medicine Geriatric Medicine; Visit Provider Internal Medicine
DX: M48.062 Spinal stenosis, lumbar region with neurogenic claudication (principal); M96.1 Postlaminectomy syndrome, not elsewhere classified
CPT/HCPCS: 99214

== ENCOUNTER → 2025-09-02 11:54 | Outpatient (BNVA) | payer OTHER, SELFPAY | PROVIDERS: PCP Internal Medicine Geriatric Medicine; Visit Provider Internal Medicine | DX: M48.062 Spinal stenosis, lumbar region with neurogenic claudication (principal); M96.1 Postlaminectomy syndrome, not elsewhere classified | CPT/HCPCS: 99212 ==